=== PATIENT | female | born 1955 | race Caucasian/White ===

== ENCOUNTER 2018-09-15 00:44 | Inpatient (IN) | payer MEDICARE, MEDICAID ==
--- NOTE | 2018-09-15 01:16 | ED Physician Chart ---
ED Chief Complaint/HPI - Patient Information Date Seen:: 09/15/18 Time Seen:: 01:11 Chief Complaint:: suicidal History of Present Illness:: 63 yr old female with agitationn suicidal here for geropsych evaluation Allergies:: Allergies Allergy/AdvReac Type Severity Reaction Status Date / Time Penicillins Allergy Verified 09/15/18 01:04 ED Past Medical History - Past Medical History Psychiatricy History: Depression, Schizophrenia, Bipolar ED Physical Exam - Physical Examination General/Constitutional: Awake, Well-developed, well-nourished, Alert, No distress, GCS 15, Non-toxic appearing, Ambulatory Head: Atraumatic Eyes: Lids, conjuctiva normal, PERRL, EOMI Skin: Nl inspection, No rash, No skin lesions, No ecchymosis, Well hydrated, No lymphadenopathy ENMT: External ears, nose nl, Nasal exam nl, Lips, teeth, gums nl Neck: Nontender, Full ROM w/o pain, No JVD, No nuchal rigidity, No bruit, No mass, No stridor Respiratory: Nl effort/Exclusion, Clear to Auscultation, No Wheeze/Rhonchi/Rales Cardio Vascular: RRR, No murmur, gallop, rubs, NL S1 S2 GI: No tenderness/rebounding/guarding, No organomegaly, No hernia, Normal BS's, Nondistended, No mass/bruits, No McBurney tenderness : No CVA tenderness Extremities: No tenderness or effusion, Full ROM, normal strength in all extremities, No edema, Normal digits & nails Neuro/Psych: Alert/oriented, DTR's symmetric, Normal sensory exam, Normal motor strength, Judgement/insight normal, Mood normal, Normal gait, No focal deficits Misc: Normal back, No paraspinal tenderness ED Assessment - Assessment General Assessment: psychosis depression suicidal ED Septic Shock - . Is Septic Shock (SBP<90, OR Lactate>4 mmol\L) present?: No - <6hrs of presentation: Vital Signs: dmcopd htnn ED Reassessment (Disposition) - Reassessment Reassessment:: copd htn depression - Diagnosis Diagnosis:: same - Aftercare/Follow up Instructions Aftercare/Follow-Up Instructions:: Counseled pt regarding lab results/diagnosis & need follow up Medication Prescribed:: multiple see lnurses notes - Patient Disposition Discharge/Transfer:: Home Condition at Disposition:: Stable
[2018-09-15 02:02] LABS: % EOSINOPHILS 0.9 % (0.0-5.0); % LYMPHOCYTES 22.1 % (20.0-50.0); % MONOCYTES 6.2 % (2.0-10.0); % NEUTROPHILS 70.8 % (40.0-80.0); EOSINOPHILE ABSOLUTE 0.1 Th/cmm (0.1-0.4); HEMATOCRIT 47.7 % (41.0-60); HEMOGLOBIN 15.6 gm/dL (12-16); LYMPHOCYTE ABSOLUTE 2.7 Th/cmm (1.5-3.0); MEAN CELL VOLUME 82.2 fl (81-100); MEAN CORPUSCULAR HEMOGLOBIN 26.9 pg (27.0-31.0); MEAN CORPUSCULAR HGB CONC 32.7 pg (28.0-36.0); MONOCYTE ABSOLUTE 0.8 Th/cmm (0.3-1.0); NEUTROPHILE ABSOLUTE 8.5 Th/cmm (1.8-8.0); PLATELET COUNT 274 Th/cmm (150-400); RED CELL DISTRIBUTION WIDTH 17.2 % (11.5-20.0); WHITE BLOOD COUNT 12.1 Th/cmm (4.8-10.8)
[2018-09-15 02:11] LABS: ANION GAP 13.4 (7.0-16.0); BUN - UREA NITROGEN 24 mg/dL (7-25); CARBON DIOXIDE 35.5 mEq/L (21.0-31.0); CHLORIDE 88 mEq/L (98-107); CREATININE - SERUM 0.6 mg/dL (0.6-1.2); GFR AFRICAN-AMERICAN > 60.0 ml/min (>90); GFR NON AFRICAN-AMERICAN > 60.0 ml/min; GLUCOSE 124 mg/dL (70-105); SODIUM SERUM 134 mEq/L (136-145)
[2018-09-15 02:18] LABS: POTASSIUM SERUM 2.9 mEq/L (3.5-5.1)
[2018-09-15] MEDS ORDERED: Potassium Chloride 20 mEq ER Tab PO ONE (02:42)
[2018-09-15] MEDS: Potassium Chloride 20 mEq ER Tab PO ONE ×2 (02:47→03:03)
[2018-09-15 03:48] VITALS: BP 102/88
[2018-09-15] MEDS ORDERED: INSULIN HUMAN REGULAR 100 UNITS/ML UNIT SUBQ SCH (07:30)
[2018-09-15] MEDS ORDERED: GLUCAGON HCl 1 MG KIT IM PRN (07:39)
[2018-09-15] MEDS ORDERED: Dextrose 50% 50 mL Abboject IVP PRN (07:39)
--- NOTE | 2018-09-15 08:02 | History & Physical ---
ADMIT DATE: 09/15/2018 DATE OF SERVICE: 09/15/2018 CHIEF COMPLAINT: Agitation and suicidal ideation. HISTORY OF PRESENT ILLNESS: This is a 63-year-old female, who was admitted from a longterm facility and was transferred to [facility] due to increase in agitation and verbalization of suicidal thoughts. From the Emergency Room, the patient was medically cleared and hence was transferred to psychiatric unit. REVIEW OF SYSTEMS: GENERAL: This is a 63-year-old female. No fever. No weakness. HEAD: No headache, no dizziness. EYES: No eye pain or blurring vision. NECK: No neck pain or nuchal rigidity. CHEST: No chest pain, no palpitation. PULMONARY: No coughing, no shortness of breath. GASTROINTESTINAL: No abdominal pain, no constipation, no diarrhea. MUSCULOSKELETAL: No joint pain. No muscle pain. SOCIAL HISTORY: The patient lives in a longterm facility prior to hospitalization. PSYCHIATRIC HISTORY: Includes depression. PAST MEDICAL HISTORY: Includes hypertension, congestive heart failure, diabetes, osteoarthritis, hyperlipidemia. FAMILY HISTORY: Unremarkable. PAST SURGICAL HISTORY: Unremarkable. PHYSICAL EXAMINATION: VITAL SIGNS: Temperature 98.2, heart rate of 82, blood pressure 104/57, respirations 20, and 99% on room air. GENERAL: This is a 63-year-old female who appears as stated in no acute distress. HEENT: Head is atraumatic and normocephalic. EYES: Bilateral conjunctivae are clear. Bilateral pupils are equally round and reactive. NECK: Supple. No JVD. CARDIOVASCULAR: S1 and S2, without murmur. PULMONARY: Clear to auscultation. GASTROINTESTINAL: Soft and nontender without guarding. Positive bowel sounds. MUSCULOSKELETAL: No clubbing. No cyanosis noted. ASSESSMENT: 1. Depression. 2. Suicidal ideation. 3. Rule out bipolar disorder. 4. Osteoarthritis. 5. Hypertension. 6. Congestive heart failure. 7. Diabetes. 8. Gastroesophageal reflux disease. 9. Hyperlipidemia. 10. Osteoarthritis. PLAN: We will admit the patient to Psychiatric Unit. We will follow up with a psychiatrist to monitor the patient's condition and behavior. We will do medication reconciliation accordingly. Treatment plans were discussed with the patient's nurse. Treatment plans were discussed with Dr. Paul. JOB# [id number]
[2018-09-15] MEDS: Pantoprazole 40 mg EC Tab PO SCH (08:23)
[2018-09-15] MEDS: Lactobacillus Rhamnosus GG 15 Billion CFU CAP.SPRINK PO SCH (08:23)
[2018-09-15] MEDS ORDERED: BULGARICUS PO SCH (09:00)
[2018-09-15] MEDS ORDERED: HYDROCHLOROTHIAZIDE 50 MG PO SCH (09:00)
[2018-09-15] MEDS ORDERED: ACIDOPHILUS PO SCH (09:00)
--- NOTE | 2018-09-15 09:41 | Diagnostic Imaging Report ---
Portable chest x-ray HISTORY: Shortness of breath The heart appears enlarged. Accentuation of the interstitial lung markings. No acute focal pulmonary processes are seen. IMPRESSION: 1. Cardiomegaly 2. No definite acute focal pulmonary processes
[2018-09-15] MEDS: INSULIN LISPRO SLIDING SCALE 100 UNITS/ML UNIT SUBQ SCH ×3 (12:00→21:12)
[2018-09-15 13:01] LABS: CHOLESTEROL 160 mg/dL (<200); HDL -HIGH DENSITY LIPOPROTEIN 36 mg/dL (23-92); TRIGLYCERIDES 281 mg/dL (<150)
--- NOTE | 2018-09-15 19:36 | Psychiatric Evaluation ---
DATE OF SERVICE: 09/15/2018 DATE OF ADMISSION: 09/15/2018 AGE: 63 SEX: Female. PHYSICIAN: Dr. Gomez, Dr. Reddy. CHIEF COMPLAINT: Agitation and confusion. HISTORY OF PRESENT ILLNESS: The patient is a 63-year-old female who was transferred from [facility] because of increased confusion and also the patient has been depressed and verbalizing thoughts of suicide and wants to kill herself. The patient has been depressed and has been anxious in the [facility]. She also has been having difficulty following directions. Also, has been withdrawn. PAST PSYCHIATRIC HISTORY: The patient has history of depression. PAST MEDICAL HISTORY: The patient has no major medical problems. SOCIAL HISTORY: The patient lives in [facility]. No known alcohol or street drug use. ALLERGIES: No known allergies. MENTAL STATUS EXAMINATION: The patient appears her stated age. Anxious. Sad affect. Agitated. Labile affect. Mood not depressed, nor elated. The patient is confused, but denies any homicidal or suicidal ideations. The patient is alert and oriented to time, place, person, and situation. Intact immediate and recent memory and intact remote memory. Poor insight and poor judgment. She seems to be of low average intelligence based on her verbal ability. ASSESSMENT AND PRIMARY DIAGNOSIS: Bipolar disorder, mixed episode, severe, with psychotic features. TREATMENT PLAN: Continue to monitor her behavior and her condition closely. We will start individual as well as milieu psychotherapy. Also, work on behavioral agitation and adjusting psychotropic medications. ESTIMATED LENGTH OF STAY: 7-10 days. THE PATIENT'S STRENGTHS AND WEAKNESSES: The patient's general fund of knowledge is fair. Weaknesses: Her ineffective coping and poor impulse control. CURRENT MEDICATIONS: Paxil 20 mg every day. AFTER-DISCHARGE PLANS: The patient will return to the [facility] with plans for followup there. The patient also is a candidate for a day program. CRITERIA FOR DISCHARGE: The patient will not be aggressive and stabilize on psychotropic medications and establish outpatient treatment plans. [facility]# [id number]
[2018-09-16] MEDS: INSULIN LISPRO SLIDING SCALE 100 UNITS/ML UNIT SUBQ SCH ×4 (06:33→21:41)
[2018-09-16] MEDS: Pantoprazole 40 mg EC Tab PO SCH (09:00)
[2018-09-16] MEDS: Lactobacillus Rhamnosus GG 15 Billion CFU CAP.SPRINK PO SCH (09:00)
[2018-09-16 09:05] LABS: A1C 6.6 % (4.8-5.6)
--- NOTE | 2018-09-16 17:05 | Internal Medicine Prog Note ---
Internal Medicine Subjective - Subjective Patient is:: awake, non-interactive Patient Complaints of:: other (none) Internal Medicine Objective - Results Result Diagrams: 09/15/18 01:45 09/15/18 01:45 Recent Labs: Laboratory Last Values WBC 12.1 Th/cmm (4.8-10.8) H 09/15/18 01:45 RBC 5.80 Mil/cmm (3.80-5.20) H 09/15/18 01:45 Hgb 15.6 gm/dL (12-16) 09/15/18 01:45 Hct 47.7 % (41.0-60) 09/15/18 01:45 MCV 82.2 fl (81-100) 09/15/18 01:45 MCH 26.9 pg (27.0-31.0) L 09/15/18 01:45 MCHC Differential 32.7 pg (28.0-36.0) 09/15/18 01:45 RDW 17.2 % (11.5-20.0) 09/15/18 01:45 Plt Count 274 Th/cmm (150-400) 09/15/18 01:45 MPV 9.3 fl 09/15/18 01:45 Neutrophils % 70.8 % (40.0-80.0) 09/15/18 01:45 Lymphocytes % 22.1 % (20.0-50.0) 09/15/18 01:45 Monocytes % 6.2 % (2.0-10.0) 09/15/18 01:45 Eosinophils % 0.9 % (0.0-5.0) 09/15/18 01:45 Basophils % 0.0 % (0.0-2.0) 09/15/18 01:45 Sodium 134 mEq/L (136-145) L 09/15/18 01:45 Potassium 2.9 mEq/L (3.5-5.1) L* 09/15/18 01:45 Chloride 88 mEq/L (98-107) L 09/15/18 01:45 Carbon Dioxide 35.5 mEq/L (21.0-31.0) H 09/15/18 01:45 Anion Gap 13.4 (7.0-16.0) 09/15/18 01:45 BUN 24 mg/dL (7-25) 09/15/18 01:45 Creatinine 0.6 mg/dL (0.6-1.2) 09/15/18 01:45 Est GFR ( Amer) > 60.0 ml/min (>90) 09/15/18 01:45 Est GFR (Non-Af Amer) > 60.0 ml/min 09/15/18 01:45 BUN/Creatinine Ratio 40.0 09/15/18 01:45 Glucose 124 mg/dL (70-105) H 09/15/18 01:45 POC Glucose 125 MG/DL (70 - 105) H 09/16/18 06:04 Calcium 10.0 mg/dL (8.6-10.3) 09/15/18 01:45 Triglycerides 281 mg/dL (<150) H 09/15/18 00:00 Cholesterol 160 mg/dL (<200) 09/15/18 00:00 LDL Cholesterol Direct 84 mg/dL (75-193) 09/15/18 00:00 HDL Cholesterol 36 mg/dL (23-92) 09/15/18 00:00 - Physical Exam Vitals and I&O: Vital Signs Temp 98.2 F 09/16/18 14:00 Pulse 88 09/16/18 14:00 Resp 20 09/16/18 14:00 BP 105/69 09/16/18 14:00 Pulse Ox 95 09/16/18 14:00 Intake & Output 09/15/18 09/16/18 09/16/18 18:59 06:59 18:59 Intake Total 500 240 Balance 500 240 Intake: Oral 500 240 Other: # Voids 2 2 # Bowel Movements 0 Active Medications: Current Medications Acetaminophen (Tylenol) 650 mg PO Q4HR PRN PRN Reason: Pain or Fever >101 Stop: 11/14/18 03:55 Amlodipine Besylate (Norvasc) 5 mg PO DAILY [facility] Stop: 11/14/18 08:59 Last Admin: 09/16/18 09:00 Dose: 5 mg Dextrose (D50w) 50 ml IVP PRN PRN PRN Reason: Blood Glucose less than 70 Stop: 11/14/18 07:38 Dextrose (Glutose 40%) 18.75 gm PO PRN PRN PRN Reason: Blood Glucose less than 70 Stop: 11/14/18 07:38 Furosemide (Lasix) 20 mg PO DAILY [facility] Stop: 11/14/18 08:59 Last Admin: 09/16/18 09:00 Dose: 20 mg Glucagon (Glucagen) 1 mg IM PRN PRN PRN Reason: Blood Glucose less than 70 Stop: 11/14/18 07:38 Hydrochlorothiazide (Hctz) 50 mg PO BID [facility] Stop: 11/14/18 08:59 Last Admin: 09/16/18 09:00 Dose: 50 mg Hydroxyzine HCl (Atarax) 25 mg PO BID [facility]; Protocol Stop: 11/14/18 08:59 Last Admin: 09/16/18 09:00 Dose: 25 mg Insulin Human Lispro (Humalog Insulin Sliding Scale) 0 units SUBQ ACHS [facility]; Protocol Stop: 11/14/18 11:29 Last Admin: 09/16/18 16:41 Dose: Not Given Lactobacillus Rhamnosus (Culturelle 15b) 1 each PO DAILY [facility] Stop: 11/14/18 08:59 Last Admin: 09/16/18 09:00 Dose: 1 each Lorazepam (Ativan) 0.5 mg PO Q4HR PRN; Protocol PRN Reason: Anxiety Stop: 10/15/18 03:47 Pantoprazole Sodium (Protonix) 40 mg PO DAILY [facility] Stop: 11/14/18 08:59 Last Admin: 09/16/18 09:00 Dose: 40 mg Paroxetine HCl (Paxil) 20 mg PO DAILY [facility]; Protocol Stop: 11/14/18 08:59 Last Admin: 09/16/18 09:00 Dose: 20 mg Senna (Senna) 8.6 mg PO BID [facility] Stop: 11/14/18 08:59 Last Admin: 09/16/18 09:00 Dose: 8.6 mg Simvastatin (Zocor) 20 mg PO HS [facility]; Protocol Stop: 11/14/18 20:59 Last Admin: 09/15/18 21:11 Dose: Not Given Tramadol HCl (Ultram) 50 mg PO BID PRN PRN Reason: Pain (Moderate) Stop: 11/14/18 03:55 Zolpidem Tartrate (Ambien) 5 mg PO HS PRN PRN Reason: Insomnia Stop: 11/14/18 03:47 General: alert, demented, NAD HEENT: NC/AT Neck: Supple, No JVD Lungs: other (no acute respiratory distress) Cardiovascular: Normal S1, Normal S2 Abdomen: soft Internal Medicine Assmt/Plan - Assessment Assessment: #Depression #Suidical Ideations #r/o Bipolar disorder #OA #HTN #CHF #DM #GERD #Hyperlipidemia - Plan Plan: Continue to keep Inpt Psych unit Monitor IOs Monitor VS Monitor patient's condition and behavior F/u Psych recs Continue current treatment.
[2018-09-17] MEDS: INSULIN LISPRO SLIDING SCALE 100 UNITS/ML UNIT SUBQ SCH ×4 (06:32→21:07)
[2018-09-17] MEDS: Pantoprazole 40 mg EC Tab PO SCH (09:01)
[2018-09-17] MEDS: Lactobacillus Rhamnosus GG 15 Billion CFU CAP.SPRINK PO SCH (09:03)
--- NOTE | 2018-09-17 10:00 | Progress Notes ---
DATE: SUBJECTIVE: Chart reviewed and the patient interviewed. Also discussed the patient's condition with the staff and reviewed records and labs. The patient remains in a depressed mood and she is still withdrawn. The patient also still has periods of agitation and irritability and also had episodes of anger and difficulty following directions. The patient also although depressed, she refused to take Paxil and uncooperative with her treatment plans. She also still needs lots of redirections because of agitation and confusion and depression. ASSESSMENT: The patient is still depressed. TREATMENT PLAN: Continue monitoring her behavior and condition closely. Also, continue adjusting to work on her compliance with medications and continue to follow up. [facility]# [id number]
--- NOTE | 2018-09-17 10:21 | Internal Medicine Prog Note ---
Internal Medicine Subjective - Subjective Service Date: 09/17/18 Patient seen and examined:: with staff Patient is:: awake, non-interactive Patient Complaints of:: other (Patient is Agitated.) Per staff patient has:: no adverse event, no episodes of fall Internal Medicine Objective - Results Result Diagrams: 09/15/18 01:45 09/15/18 01:45 Recent Labs: Laboratory Last Values WBC 12.1 Th/cmm (4.8-10.8) H 09/15/18 01:45 RBC 5.80 Mil/cmm (3.80-5.20) H 09/15/18 01:45 Hgb 15.6 gm/dL (12-16) 09/15/18 01:45 Hct 47.7 % (41.0-60) 09/15/18 01:45 MCV 82.2 fl (81-100) 09/15/18 01:45 MCH 26.9 pg (27.0-31.0) L 09/15/18 01:45 MCHC Differential 32.7 pg (28.0-36.0) 09/15/18 01:45 RDW 17.2 % (11.5-20.0) 09/15/18 01:45 Plt Count 274 Th/cmm (150-400) 09/15/18 01:45 MPV 9.3 fl 09/15/18 01:45 Neutrophils % 70.8 % (40.0-80.0) 09/15/18 01:45 Lymphocytes % 22.1 % (20.0-50.0) 09/15/18 01:45 Monocytes % 6.2 % (2.0-10.0) 09/15/18 01:45 Eosinophils % 0.9 % (0.0-5.0) 09/15/18 01:45 Basophils % 0.0 % (0.0-2.0) 09/15/18 01:45 Sodium 134 mEq/L (136-145) L 09/15/18 01:45 Potassium 2.9 mEq/L (3.5-5.1) L* 09/15/18 01:45 Chloride 88 mEq/L (98-107) L 09/15/18 01:45 Carbon Dioxide 35.5 mEq/L (21.0-31.0) H 09/15/18 01:45 Anion Gap 13.4 (7.0-16.0) 09/15/18 01:45 BUN 24 mg/dL (7-25) 09/15/18 01:45 Creatinine 0.6 mg/dL (0.6-1.2) 09/15/18 01:45 Est GFR ( Amer) > 60.0 ml/min (>90) 09/15/18 01:45 Est GFR (Non-Af Amer) > 60.0 ml/min 09/15/18 01:45 BUN/Creatinine Ratio 40.0 09/15/18 01:45 Glucose 124 mg/dL (70-105) H 09/15/18 01:45 POC Glucose 99 MG/DL (70 - 105) 09/17/18 06:20 Calcium 10.0 mg/dL (8.6-10.3) 09/15/18 01:45 Triglycerides 281 mg/dL (<150) H 09/15/18 00:00 Cholesterol 160 mg/dL (<200) 09/15/18 00:00 LDL Cholesterol Direct 84 mg/dL (75-193) 09/15/18 00:00 HDL Cholesterol 36 mg/dL (23-92) 09/15/18 00:00 - Physical Exam Vitals and I&O: Vital Signs Temp 98.5 F 09/17/18 06:18 Pulse 70 09/17/18 09:02 Resp 18 09/17/18 08:17 BP 110/56 09/17/18 09:02 Pulse Ox 83 09/17/18 08:17 Intake & Output 09/16/18 09/17/18 09/17/18 18:59 06:59 18:59 Intake Total 120 Balance 120 Intake: Oral 120 Other: # Voids 3 # Bowel Movements 0 Active Medications: Current Medications Acetaminophen (Tylenol) 650 mg PO Q4HR PRN PRN Reason: Pain or Fever >101 Stop: 11/14/18 03:55 Amlodipine Besylate (Norvasc) 5 mg PO DAILY [facility] Stop: 11/14/18 08:59 Last Admin: 09/17/18 09:02 Dose: 5 mg Dextrose (D50w) 50 ml IVP PRN PRN PRN Reason: Blood Glucose less than 70 Stop: 11/14/18 07:38 Dextrose (Glutose 40%) 18.75 gm PO PRN PRN PRN Reason: Blood Glucose less than 70 Stop: 11/14/18 07:38 Furosemide (Lasix) 20 mg PO DAILY [facility] Stop: 11/14/18 08:59 Last Admin: 09/17/18 09:02 Dose: 20 mg Glucagon (Glucagen) 1 mg IM PRN PRN PRN Reason: Blood Glucose less than 70 Stop: 11/14/18 07:38 Hydrochlorothiazide (Hctz) 50 mg PO BID [facility] Stop: 11/14/18 08:59 Last Admin: 09/17/18 09:01 Dose: 50 mg Hydroxyzine HCl (Atarax) 25 mg PO BID [facility]; Protocol Stop: 11/14/18 08:59 Last Admin: 09/17/18 09:03 Dose: 25 mg Insulin Human Lispro (Humalog Insulin Sliding Scale) 0 units SUBQ ACHS [facility]; Protocol Stop: 11/14/18 11:29 Last Admin: 09/17/18 06:32 Dose: Not Given Lactobacillus Rhamnosus (Culturelle 15b) 1 each PO DAILY [facility] Stop: 11/14/18 08:59 Last Admin: 09/17/18 09:03 Dose: 1 each Lorazepam (Ativan) 0.5 mg PO Q4HR PRN; Protocol PRN Reason: Anxiety Stop: 10/15/18 03:47 Last Admin: 09/17/18 01:44 Dose: 0.5 mg Pantoprazole Sodium (Protonix) 40 mg PO DAILY [facility] Stop: 11/14/18 08:59 Last Admin: 09/17/18 09:01 Dose: 40 mg Paroxetine HCl (Paxil) 20 mg PO DAILY [facility]; Protocol Stop: 11/14/18 08:59 Last Admin: 09/17/18 09:03 Dose: 20 mg Senna (Senna) 8.6 mg PO BID [facility] Stop: 11/14/18 08:59 Last Admin: 09/17/18 09:03 Dose: 8.6 mg Simvastatin (Zocor) 20 mg PO HS [facility]; Protocol Stop: 11/14/18 20:59 Last Admin: 09/16/18 21:43 Dose: 20 mg Tramadol HCl (Ultram) 50 mg PO BID PRN PRN Reason: Pain (Moderate) Stop: 11/14/18 03:55 Zolpidem Tartrate (Ambien) 5 mg PO HS PRN PRN Reason: Insomnia Stop: 11/14/18 03:47 Last Admin: 09/16/18 21:42 Dose: 5 mg Physical Exam: 63 y/o female patient was admitted due to Agitation, Suicidal ideation and R/o Bipolar disorder. General: alert, demented, NAD HEENT: NC/AT Neck: Supple, No JVD Lungs: other (no acute respiratory distress.) Cardiovascular: Normal S1, Normal S2 Abdomen: soft, non-tender Extremities: clear Neurological: no change Internal Medicine Assmt/Plan - Assessment Assessment: Agitation. Suicidal ideation. R/o Bipolar Disorder. Depression. HTN. CHF. Diabetes. OA. Hyperlipidemia. GERD. - Plan Plan: Continuation of care. Monitor Vitals and Labs. Continue present meds as directed. Pain management. Fall precaution. Psych management per Psych. Continue present care management. Nutritional Asmnt/Malnutr-PDOC - Dietary Evaluation Malnutrition Findings (Please click <Entered> for more info): see orders.
--- NOTE | 2018-09-17 23:04 | Progress Notes ---
DATE: SUBJECTIVE: Chart reviewed and the patient interviewed. Also discussed the patient's condition with the staff and reviewed records and labs. The patient is still withdrawn and stayed in a depressed mood. The patient also is still feeling hopeless and helpless and does not want to be bothered and is interacting minimally with others. The patient also is still noncompliant with medications for no reason. She also is still feeling hopeless. Otherwise, the patient continued to comply with taking her medications with no side effects of medications. ASSESSMENT: The patient is still depressed and need close monitoring and working on her ineffective coping. TREATMENT PLAN: Continue working on her compliance with medications that had been ineffective coping. Also, continue adjusting medications and working on her compliance. [facility]# [id number]
[2018-09-18] MEDS: INSULIN LISPRO SLIDING SCALE 100 UNITS/ML UNIT SUBQ SCH ×4 (06:41→20:40)
[2018-09-18] MEDS: Lactobacillus Rhamnosus GG 15 Billion CFU CAP.SPRINK PO SCH (08:44)
[2018-09-18] MEDS: Pantoprazole 40 mg EC Tab PO SCH (08:44)
--- NOTE | 2018-09-18 19:26 | Internal Medicine Prog Note ---
Internal Medicine Subjective - Subjective Service Date: 09/18/18 Patient is:: awake, non-interactive Patient Complaints of:: other (Patient is Agitated.) Per staff patient has:: no adverse event, no episodes of fall Internal Medicine Objective - Results Result Diagrams: 09/15/18 01:45 09/15/18 01:45 Recent Labs: Laboratory Last Values WBC 12.1 Th/cmm (4.8-10.8) H 09/15/18 01:45 RBC 5.80 Mil/cmm (3.80-5.20) H 09/15/18 01:45 Hgb 15.6 gm/dL (12-16) 09/15/18 01:45 Hct 47.7 % (41.0-60) 09/15/18 01:45 MCV 82.2 fl (81-100) 09/15/18 01:45 MCH 26.9 pg (27.0-31.0) L 09/15/18 01:45 MCHC Differential 32.7 pg (28.0-36.0) 09/15/18 01:45 RDW 17.2 % (11.5-20.0) 09/15/18 01:45 Plt Count 274 Th/cmm (150-400) 09/15/18 01:45 MPV 9.3 fl 09/15/18 01:45 Neutrophils % 70.8 % (40.0-80.0) 09/15/18 01:45 Lymphocytes % 22.1 % (20.0-50.0) 09/15/18 01:45 Monocytes % 6.2 % (2.0-10.0) 09/15/18 01:45 Eosinophils % 0.9 % (0.0-5.0) 09/15/18 01:45 Basophils % 0.0 % (0.0-2.0) 09/15/18 01:45 Sodium 134 mEq/L (136-145) L 09/15/18 01:45 Potassium 2.9 mEq/L (3.5-5.1) L* 09/15/18 01:45 Chloride 88 mEq/L (98-107) L 09/15/18 01:45 Carbon Dioxide 35.5 mEq/L (21.0-31.0) H 09/15/18 01:45 Anion Gap 13.4 (7.0-16.0) 09/15/18 01:45 BUN 24 mg/dL (7-25) 09/15/18 01:45 Creatinine 0.6 mg/dL (0.6-1.2) 09/15/18 01:45 Est GFR ( Amer) > 60.0 ml/min (>90) 09/15/18 01:45 Est GFR (Non-Af Amer) > 60.0 ml/min 09/15/18 01:45 BUN/Creatinine Ratio 40.0 09/15/18 01:45 Glucose 124 mg/dL (70-105) H 09/15/18 01:45 POC Glucose 89 MG/DL (70 - 105) 09/18/18 16:42 Calcium 10.0 mg/dL (8.6-10.3) 09/15/18 01:45 Triglycerides 281 mg/dL (<150) H 09/15/18 00:00 Cholesterol 160 mg/dL (<200) 09/15/18 00:00 LDL Cholesterol Direct 84 mg/dL (75-193) 09/15/18 00:00 HDL Cholesterol 36 mg/dL (23-92) 09/15/18 00:00 - Physical Exam Vitals and I&O: Vital Signs Temp 98.6 F 09/18/18 14:17 Pulse 92 09/18/18 19:24 Resp 20 09/18/18 19:24 BP 127/54 09/18/18 16:54 Pulse Ox 95 09/18/18 19:24 Intake & Output 09/18/18 09/18/18 09/19/18 06:59 18:59 06:59 Intake Total 240 500 Balance 240 500 Intake: Oral 240 500 Other: # Voids 3 4 # Bowel Movements 0 0 Active Medications: Current Medications Acetaminophen (Tylenol) 650 mg PO Q4HR PRN PRN Reason: Pain or Fever >101 Stop: 11/14/18 03:55 Amlodipine Besylate (Norvasc) 5 mg PO DAILY [facility] Stop: 11/14/18 08:59 Last Admin: 09/18/18 08:24 Dose: Not Given Dextrose (D50w) 50 ml IVP PRN PRN PRN Reason: Blood Glucose less than 70 Stop: 11/14/18 07:38 Dextrose (Glutose 40%) 18.75 gm PO PRN PRN PRN Reason: Blood Glucose less than 70 Stop: 11/14/18 07:38 Furosemide (Lasix) 20 mg PO DAILY [facility] Stop: 11/14/18 08:59 Last Admin: 09/18/18 08:45 Dose: Not Given Glucagon (Glucagen) 1 mg IM PRN PRN PRN Reason: Blood Glucose less than 70 Stop: 11/14/18 07:38 Hydrochlorothiazide (Hctz) 50 mg PO BID [facility] Stop: 11/14/18 08:59 Last Admin: 09/18/18 16:54 Dose: 50 mg Hydroxyzine HCl (Atarax) 25 mg PO BID [facility]; Protocol Stop: 11/14/18 08:59 Last Admin: 09/18/18 16:55 Dose: 25 mg Insulin Human Lispro (Humalog Insulin Sliding Scale) 0 units SUBQ ACHS [facility]; Protocol Stop: 11/14/18 11:29 Last Admin: 09/18/18 16:48 Dose: Not Given Lactobacillus Rhamnosus (Culturelle 15b) 1 each PO DAILY [facility] Stop: 11/14/18 08:59 Last Admin: 09/18/18 08:44 Dose: 1 each Lorazepam (Ativan) 0.5 mg PO Q4HR PRN; Protocol PRN Reason: Anxiety Stop: 10/15/18 03:47 Last Admin: 09/17/18 01:44 Dose: 0.5 mg Pantoprazole Sodium (Protonix) 40 mg PO DAILY [facility] Stop: 11/14/18 08:59 Last Admin: 09/18/18 08:44 Dose: 40 mg Paroxetine HCl (Paxil) 20 mg PO DAILY [facility]; Protocol Stop: 11/14/18 08:59 Last Admin: 09/18/18 08:46 Dose: 20 mg Senna (Senna) 8.6 mg PO BID [facility] Stop: 11/14/18 08:59 Last Admin: 09/18/18 16:53 Dose: 8.6 mg Simvastatin (Zocor) 20 mg PO HS [facility]; Protocol Stop: 11/14/18 20:59 Last Admin: 09/17/18 21:08 Dose: 20 mg Tramadol HCl (Ultram) 50 mg PO BID PRN PRN Reason: Pain (Moderate) Stop: 11/14/18 03:55 Zolpidem Tartrate (Ambien) 5 mg PO HS PRN PRN Reason: Insomnia Stop: 11/14/18 03:47 Last Admin: 09/17/18 21:08 Dose: 5 mg General: alert, demented, NAD HEENT: NC/AT Neck: Supple, No JVD Lungs: other (no acute respiratory distress.) Cardiovascular: Normal S1, Normal S2 Abdomen: soft, non-tender Extremities: clear Neurological: no change Internal Medicine Assmt/Plan - Assessment Assessment: #Psychosis #Dementia #HTN #OA #Iron deficiency Anemia - Plan Plan: CPM Nutritional Asmnt/Malnutr-PDOC - Dietary Evaluation Malnutrition Findings (Please click <Entered> for more info): Nutritional Asmnt/Malnutrition Start: 09/17/18 11: 12 Text: Status: Complete Freq: Protocol: Document 09/17/18 11:12 MMULMYRANDA (Rec: 09/17/18 11:29 MMULMYRANDA CULVER- FNS1) Nutritional Asmnt/Malnutrition Patient General Information Nutritional Screening High Risk Consult Diagnosis Psychosis NOS Pertinent Medical Hx/Surgical Hx HTN, Congestive heart failure, diabetes, osteoarthritis, hyperlipidemia Subjective Information Patient was admitted from SNF. Consult recieved for "food texture". Patient was given KCL 40 meq, but K was not rechecked. In bed at time of visit. Current Diet Order/ Nutrition Support 60 gm CCHO, 2gm Sodium, no concentrated sweets, chopped Patient / S.O Not Indicated Pertinent Medications D50W, lasix, glucagon, humalog , culturelle, protonix, senna Pertinent Labs (09/15) Na 134, K 2.9, TAG 281, glucose ranging 99-172 Nutritional Hx/Data Height 5 ft Height (Calculated Centimeters) 152.4 Current Weight (lbs) 150 lb Weight (Calculated Kilograms) 68.0 Weight (Calculated Grams) 61708.9 [place] Body Weight 100 % [place] Body Weight 150 Body Mass Index (BMI) 29.2 Recent Weight Change No Weight Status Overweight GI Symptoms GI Symptoms None Last BM none noted since admission Difficult in: None Food Allergies No Cultural/Ethnic/Episcopal Belief none noted Usual diet at home unknown Skin Integrity/Comment: Vlad 20, 2+ pitting edema Current %PO Fair (50-74%) Estimated Nutritional Goals BEE in Kcals: Using Current wt Calories/Kcals/Kg 68.1kg CBW Kcals Calculated ~7621-4543 kcal/day (22-25 kcal/kg) Protein: Using Current wt Protein g/k.8-1 gm/kg Protein Calculated ~55-65 gm/day Fluid: ml ~1716-7073 ml/day (1 ml/kcal) Nutritional Problem 1. Problem Problem Altered nutrition related lab values related to Etiology electrolyte imbalance aeb Signs/Symptoms: Na 134, K 2.9 Intervention/Recommendation Comments 1. Continue 60 gm CCHO, 2gm Sodium, Chopped diet as tolerated by patient. 2. Consider rechecking K and Na level. If remains hyponatremic, consider fluid restriction. Expected Outcomes/Goals Expected Outcomes/Goals PO intake to meet >75% of nutritional needs, weight stability or trend toward ideal body weight, skin intact , nutrition related labs to approach WNL. F/U MR 09/20-09/22
--- NOTE | 2018-09-19 02:37 | Progress Notes ---
DATE: 09/18/2018 FOLLOWUP PROGRESS NOTE COVERING FOR: Jeremiah Gomez M.D. PROGRESS ON THE UNIT: Case discussed with staff of the patient, reviewed records. This is a 63-year-old female who is admitted on 09/15/2018, transferred from [facility] because of increasing confusion, has been depressed, verbalized thoughts of suicide, wants to kill herself, has been depressed and anxious at the nursing facility, difficulty following staff's redirection. When I tried to talk to her, she is a poor historian, unable to engage. Continues to be depressed looking. Minimal interaction with staff and others. Apparently has been noncompliant with the medications. Feeling hopeless and helpless. We will continue to work with the patient in group therapy and milieu therapy, adjust the medication as needed. JOB# [id number]
[2018-09-19] MEDS: INSULIN LISPRO SLIDING SCALE 100 UNITS/ML UNIT SUBQ SCH ×4 (06:36→20:44)
[2018-09-19] MEDS: Lactobacillus Rhamnosus GG 15 Billion CFU CAP.SPRINK PO SCH (09:17)
[2018-09-19] MEDS: Pantoprazole 40 mg EC Tab PO SCH (09:17)
--- NOTE | 2018-09-19 13:02 | Internal Medicine Prog Note ---
Internal Medicine Subjective - Subjective Service Date: 09/19/18 Patient seen and examined:: with staff Patient is:: awake, non-interactive, agitated Patient Complaints of:: other (Patient is Agitated.) Per staff patient has:: no adverse event, no episodes of fall Internal Medicine Objective - Results Result Diagrams: 09/15/18 01:45 09/15/18 01:45 Recent Labs: Laboratory Last Values WBC 12.1 Th/cmm (4.8-10.8) H 09/15/18 01:45 RBC 5.80 Mil/cmm (3.80-5.20) H 09/15/18 01:45 Hgb 15.6 gm/dL (12-16) 09/15/18 01:45 Hct 47.7 % (41.0-60) 09/15/18 01:45 MCV 82.2 fl (81-100) 09/15/18 01:45 MCH 26.9 pg (27.0-31.0) L 09/15/18 01:45 MCHC Differential 32.7 pg (28.0-36.0) 09/15/18 01:45 RDW 17.2 % (11.5-20.0) 09/15/18 01:45 Plt Count 274 Th/cmm (150-400) 09/15/18 01:45 MPV 9.3 fl 09/15/18 01:45 Neutrophils % 70.8 % (40.0-80.0) 09/15/18 01:45 Lymphocytes % 22.1 % (20.0-50.0) 09/15/18 01:45 Monocytes % 6.2 % (2.0-10.0) 09/15/18 01:45 Eosinophils % 0.9 % (0.0-5.0) 09/15/18 01:45 Basophils % 0.0 % (0.0-2.0) 09/15/18 01:45 Sodium 134 mEq/L (136-145) L 09/15/18 01:45 Potassium 2.9 mEq/L (3.5-5.1) L* 09/15/18 01:45 Chloride 88 mEq/L (98-107) L 09/15/18 01:45 Carbon Dioxide 35.5 mEq/L (21.0-31.0) H 09/15/18 01:45 Anion Gap 13.4 (7.0-16.0) 09/15/18 01:45 BUN 24 mg/dL (7-25) 09/15/18 01:45 Creatinine 0.6 mg/dL (0.6-1.2) 09/15/18 01:45 Est GFR ( Amer) > 60.0 ml/min (>90) 09/15/18 01:45 Est GFR (Non-Af Amer) > 60.0 ml/min 09/15/18 01:45 BUN/Creatinine Ratio 40.0 09/15/18 01:45 Glucose 124 mg/dL (70-105) H 09/15/18 01:45 POC Glucose 108 MG/DL (70 - 105) H 09/19/18 11:17 Calcium 10.0 mg/dL (8.6-10.3) 09/15/18 01:45 Triglycerides 281 mg/dL (<150) H 09/15/18 00:00 Cholesterol 160 mg/dL (<200) 09/15/18 00:00 LDL Cholesterol Direct 84 mg/dL (75-193) 09/15/18 00:00 HDL Cholesterol 36 mg/dL (23-92) 09/15/18 00:00 - Physical Exam Vitals and I&O: Vital Signs Temp 98.4 F 09/19/18 05:56 Pulse 88 09/19/18 09:14 Resp 20 09/19/18 07:20 BP 118/71 09/19/18 09:18 Pulse Ox 94 09/19/18 07:20 Intake & Output 09/18/18 09/19/18 09/19/18 18:59 06:59 18:59 Intake Total 500 240 Balance 500 240 Intake: Oral 500 240 Other: # Voids 4 1 # Bowel Movements 0 0 Active Medications: Current Medications Acetaminophen (Tylenol) 650 mg PO Q4HR PRN PRN Reason: Pain or Fever >101 Stop: 11/14/18 03:55 Amlodipine Besylate (Norvasc) 5 mg PO DAILY [facility] Stop: 11/14/18 08:59 Last Admin: 09/19/18 09:14 Dose: 5 mg Dextrose (D50w) 50 ml IVP PRN PRN PRN Reason: Blood Glucose less than 70 Stop: 11/14/18 07:38 Dextrose (Glutose 40%) 18.75 gm PO PRN PRN PRN Reason: Blood Glucose less than 70 Stop: 11/14/18 07:38 Furosemide (Lasix) 20 mg PO DAILY [facility] Stop: 11/14/18 08:59 Last Admin: 09/19/18 09:17 Dose: 20 mg Glucagon (Glucagen) 1 mg IM PRN PRN PRN Reason: Blood Glucose less than 70 Stop: 11/14/18 07:38 Hydrochlorothiazide (Hctz) 50 mg PO BID [facility] Stop: 11/14/18 08:59 Last Admin: 09/19/18 09:18 Dose: 50 mg Hydroxyzine HCl (Atarax) 25 mg PO BID [facility]; Protocol Stop: 11/14/18 08:59 Last Admin: 09/19/18 09:17 Dose: 25 mg Insulin Human Lispro (Humalog Insulin Sliding Scale) 0 units SUBQ ACHS [facility]; Protocol Stop: 11/14/18 11:29 Last Admin: 09/19/18 11:21 Dose: Not Given Lactobacillus Rhamnosus (Culturelle 15b) 1 each PO DAILY [facility] Stop: 11/14/18 08:59 Last Admin: 09/19/18 09:17 Dose: 1 each Lorazepam (Ativan) 0.5 mg PO Q4HR PRN; Protocol PRN Reason: Anxiety Stop: 10/15/18 03:47 Last Admin: 09/17/18 01:44 Dose: 0.5 mg Pantoprazole Sodium (Protonix) 40 mg PO DAILY [facility] Stop: 11/14/18 08:59 Last Admin: 09/19/18 09:17 Dose: 40 mg Paroxetine HCl (Paxil) 20 mg PO DAILY [facility]; Protocol Stop: 11/14/18 08:59 Last Admin: 09/19/18 09:17 Dose: 20 mg Senna (Senna) 8.6 mg PO BID [facility] Stop: 11/14/18 08:59 Last Admin: 09/19/18 09:17 Dose: 8.6 mg Simvastatin (Zocor) 20 mg PO HS [facility]; Protocol Stop: 11/14/18 20:59 Last Admin: 09/18/18 20:40 Dose: 20 mg Tramadol HCl (Ultram) 50 mg PO BID PRN PRN Reason: Pain (Moderate) Stop: 11/14/18 03:55 Zolpidem Tartrate (Ambien) 5 mg PO HS PRN PRN Reason: Insomnia Stop: 11/14/18 03:47 Last Admin: 09/18/18 22:31 Dose: 5 mg Physical Exam: 63 y/o female patient was admitted due to Agitation, Suicidal ideation and R/o Bipolar disorder. General: alert, demented, NAD HEENT: NC/AT Neck: Supple, No JVD Lungs: other (no acute respiratory distress.) Cardiovascular: Normal S1, Normal S2 Abdomen: soft, non-tender Extremities: clear Neurological: no change Internal Medicine Assmt/Plan - Assessment Assessment: Agitation. Suicidal ideation. R/o Bipolar Disorder. Depression. HTN. CHF. Diabetes. OA. Hyperlipidemia. GERD. - Plan Plan: Continuation of care. Monitor Vitals and Labs. Continue present meds as directed. Pain management. Fall precaution. Psych management per Psych. Continue present care management. Nutritional Asmnt/Malnutr-PDOC - Dietary Evaluation Malnutrition Findings (Please click <Entered> for more info): Nutritional Asmnt/Malnutrition Start: 09/17/18 11: 12 Text: Status: Complete Freq: Protocol: Document 09/17/18 11:12 MMULMYRANDA (Rec: 09/17/18 11:29 MMULMYRANDA CULVER- FNS1) Nutritional Asmnt/Malnutrition Patient General Information Nutritional Screening High Risk Consult Diagnosis Psychosis NOS Pertinent Medical Hx/Surgical Hx HTN, Congestive heart failure, diabetes, osteoarthritis, hyperlipidemia Subjective Information Patient was admitted from SNF. Consult recieved for "food texture". Patient was given KCL 40 meq, but K was not rechecked. In bed at time of visit. Current Diet Order/ Nutrition Support 60 gm CCHO, 2gm Sodium, no concentrated sweets, chopped Patient / S.O Not Indicated Pertinent Medications D50W, lasix, glucagon, humalog , culturelle, protonix, senna Pertinent Labs (09/15) Na 134, K 2.9, TAG 281, glucose ranging 99-172 Nutritional Hx/Data Height 1.52 m Height (Calculated Centimeters) 152.4 Current Weight (lbs) 68.039 kg Weight (Calculated Kilograms) 68.0 Weight (Calculated Grams) 90358.9 [place] Body Weight 100 % [place] Body Weight 150 Body Mass Index (BMI) 29.2 Recent Weight Change No Weight Status Overweight GI Symptoms GI Symptoms None Last BM none noted since admission Difficult in: None Food Allergies No Cultural/Ethnic/Holiness Belief none noted Usual diet at home unknown Skin Integrity/Comment: Vlad 20, 2+ pitting edema Current %PO Fair (50-74%) Estimated Nutritional Goals BEE in Kcals: Using Current wt Calories/Kcals/Kg 68.1kg CBW Kcals Calculated ~3863-6035 kcal/day (22-25 kcal/kg) Protein: Using Current wt Protein g/k.8-1 gm/kg Protein Calculated ~55-65 gm/day Fluid: ml ~2266-9749 ml/day (1 ml/kcal) Nutritional Problem 1. Problem Problem Altered nutrition related lab values related to Etiology electrolyte imbalance aeb Signs/Symptoms: Na 134, K 2.9 Intervention/Recommendation Comments 1. Continue 60 gm CCHO, 2gm Sodium, Chopped diet as tolerated by patient. 2. Consider rechecking K and Na level. If remains hyponatremic, consider fluid restriction. Expected Outcomes/Goals Expected Outcomes/Goals PO intake to meet >75% of nutritional needs, weight stability or trend toward ideal body weight, skin intact , nutrition related labs to approach WNL. F/U MR 09/20-09/22
--- NOTE | 2018-09-20 00:15 | Progress Notes ---
DATE: 09/19/2018 Case was discussed with staff of the patient, reviewed records. The patient reported that she is taking her medication today. She started taking it. She has no problem taking it. She is sleeping well and eating well. She is on Paxil 20 mg a day with no side effects, no sedation, no nausea and we will continue to work with the patient in group therapy, milieu therapy, and adjust the medication as needed. JOB# [id number]
[2018-09-20] MEDS: INSULIN LISPRO SLIDING SCALE 100 UNITS/ML UNIT SUBQ SCH ×4 (06:35→20:45)
[2018-09-20] MEDS: Pantoprazole 40 mg EC Tab PO SCH (08:35)
[2018-09-20] MEDS: Lactobacillus Rhamnosus GG 15 Billion CFU CAP.SPRINK PO SCH (08:35)
--- NOTE | 2018-09-20 17:49 | Internal Medicine Prog Note ---
Internal Medicine Subjective - Subjective Service Date: 09/20/18 Patient is:: awake, non-interactive, agitated Patient Complaints of:: other (Patient is Agitated.) Per staff patient has:: no adverse event, no episodes of fall Internal Medicine Objective - Results Result Diagrams: 09/15/18 01:45 09/15/18 01:45 Recent Labs: Laboratory Last Values WBC 12.1 Th/cmm (4.8-10.8) H 09/15/18 01:45 RBC 5.80 Mil/cmm (3.80-5.20) H 09/15/18 01:45 Hgb 15.6 gm/dL (12-16) 09/15/18 01:45 Hct 47.7 % (41.0-60) 09/15/18 01:45 MCV 82.2 fl (81-100) 09/15/18 01:45 MCH 26.9 pg (27.0-31.0) L 09/15/18 01:45 MCHC Differential 32.7 pg (28.0-36.0) 09/15/18 01:45 RDW 17.2 % (11.5-20.0) 09/15/18 01:45 Plt Count 274 Th/cmm (150-400) 09/15/18 01:45 MPV 9.3 fl 09/15/18 01:45 Neutrophils % 70.8 % (40.0-80.0) 09/15/18 01:45 Lymphocytes % 22.1 % (20.0-50.0) 09/15/18 01:45 Monocytes % 6.2 % (2.0-10.0) 09/15/18 01:45 Eosinophils % 0.9 % (0.0-5.0) 09/15/18 01:45 Basophils % 0.0 % (0.0-2.0) 09/15/18 01:45 Sodium 134 mEq/L (136-145) L 09/15/18 01:45 Potassium 2.9 mEq/L (3.5-5.1) L* 09/15/18 01:45 Chloride 88 mEq/L (98-107) L 09/15/18 01:45 Carbon Dioxide 35.5 mEq/L (21.0-31.0) H 09/15/18 01:45 Anion Gap 13.4 (7.0-16.0) 09/15/18 01:45 BUN 24 mg/dL (7-25) 09/15/18 01:45 Creatinine 0.6 mg/dL (0.6-1.2) 09/15/18 01:45 Est GFR ( Amer) > 60.0 ml/min (>90) 09/15/18 01:45 Est GFR (Non-Af Amer) > 60.0 ml/min 09/15/18 01:45 BUN/Creatinine Ratio 40.0 09/15/18 01:45 Glucose 124 mg/dL (70-105) H 09/15/18 01:45 POC Glucose 143 MG/DL (70 - 105) H 09/20/18 16:19 Calcium 10.0 mg/dL (8.6-10.3) 09/15/18 01:45 Triglycerides 281 mg/dL (<150) H 09/15/18 00:00 Cholesterol 160 mg/dL (<200) 09/15/18 00:00 LDL Cholesterol Direct 84 mg/dL (75-193) 09/15/18 00:00 HDL Cholesterol 36 mg/dL (23-92) 09/15/18 00:00 - Physical Exam Vitals and I&O: Vital Signs Temp 97.9 F 09/20/18 14:00 Pulse 95 09/20/18 14:00 Resp 20 09/20/18 14:00 BP 113/78 09/20/18 16:51 Pulse Ox 96 09/20/18 14:00 Intake & Output 09/19/18 09/20/18 09/20/18 18:59 06:59 18:59 Intake Total 1500 Balance 1500 Intake: Oral 1500 Other: # Voids 3 # Bowel Movements 0 Active Medications: Current Medications Acetaminophen (Tylenol) 650 mg PO Q4HR PRN PRN Reason: Pain or Fever >101 Stop: 11/14/18 03:55 Amlodipine Besylate (Norvasc) 5 mg PO DAILY [facility] Stop: 11/14/18 08:59 Last Admin: 09/20/18 08:34 Dose: 5 mg Dextrose (D50w) 50 ml IVP PRN PRN PRN Reason: Blood Glucose less than 70 Stop: 11/14/18 07:38 Dextrose (Glutose 40%) 18.75 gm PO PRN PRN PRN Reason: Blood Glucose less than 70 Stop: 11/14/18 07:38 Furosemide (Lasix) 20 mg PO DAILY [facility] Stop: 11/14/18 08:59 Last Admin: 09/20/18 08:34 Dose: 20 mg Glucagon (Glucagen) 1 mg IM PRN PRN PRN Reason: Blood Glucose less than 70 Stop: 11/14/18 07:38 Hydrochlorothiazide (Hctz) 50 mg PO BID [facility] Stop: 11/14/18 08:59 Last Admin: 09/20/18 16:51 Dose: 50 mg Hydroxyzine HCl (Atarax) 25 mg PO BID [facility]; Protocol Stop: 11/14/18 08:59 Last Admin: 09/20/18 16:51 Dose: 25 mg Insulin Human Lispro (Humalog Insulin Sliding Scale) 0 units SUBQ ACHS [facility]; Protocol Stop: 11/14/18 11:29 Last Admin: 09/20/18 16:26 Dose: Not Given Lactobacillus Rhamnosus (Culturelle 15b) 1 each PO DAILY [facility] Stop: 11/14/18 08:59 Last Admin: 09/20/18 08:35 Dose: 1 each Lorazepam (Ativan) 0.5 mg PO Q4HR PRN; Protocol PRN Reason: Anxiety Stop: 10/15/18 03:47 Last Admin: 09/17/18 01:44 Dose: 0.5 mg Pantoprazole Sodium (Protonix) 40 mg PO DAILY [facility] Stop: 11/14/18 08:59 Last Admin: 09/20/18 08:35 Dose: 40 mg Paroxetine HCl (Paxil) 20 mg PO DAILY [facility]; Protocol Stop: 11/14/18 08:59 Last Admin: 09/20/18 08:35 Dose: 20 mg Senna (Senna) 8.6 mg PO BID [facility] Stop: 11/14/18 08:59 Last Admin: 09/20/18 16:51 Dose: 8.6 mg Simvastatin (Zocor) 20 mg PO HS [facility]; Protocol Stop: 11/14/18 20:59 Last Admin: 09/19/18 20:45 Dose: 20 mg Tramadol HCl (Ultram) 50 mg PO BID PRN PRN Reason: Pain (Moderate) Stop: 11/14/18 03:55 Zolpidem Tartrate (Ambien) 5 mg PO HS PRN PRN Reason: Insomnia Stop: 11/14/18 03:47 Last Admin: 09/18/18 22:31 Dose: 5 mg General: alert, demented, NAD HEENT: NC/AT Neck: Supple, No JVD Lungs: other (no acute respiratory distress.) Cardiovascular: Normal S1, Normal S2 Abdomen: soft, non-tender Extremities: clear Neurological: no change Internal Medicine Assmt/Plan - Assessment Assessment: #Psychosis #Dementia #HTN #OA #Iron deficiency Anemia - Plan Plan: CPM Nutritional Asmnt/Malnutr-PDOC - Dietary Evaluation Malnutrition Findings (Please click <Entered> for more info): Nutritional Asmnt/Malnutrition Start: 09/17/18 11: 12 Text: Status: Complete Freq: Protocol: Document 09/17/18 11:12 MMCECILE (Rec: 09/17/18 11:29 MMULMYRANDA CULVER- FNS1) Nutritional Asmnt/Malnutrition Patient General Information Nutritional Screening High Risk Consult Diagnosis Psychosis NOS Pertinent Medical Hx/Surgical Hx HTN, Congestive heart failure, diabetes, osteoarthritis, hyperlipidemia Subjective Information Patient was admitted from SNF. Consult recieved for "food texture". Patient was given KCL 40 meq, but K was not rechecked. In bed at time of visit. Current Diet Order/ Nutrition Support 60 gm CCHO, 2gm Sodium, no concentrated sweets, chopped Patient / S.O Not Indicated Pertinent Medications D50W, lasix, glucagon, humalog , culturelle, protonix, senna Pertinent Labs (09/15) Na 134, K 2.9, TAG 281, glucose ranging 99-172 Nutritional Hx/Data Height 5 ft Height (Calculated Centimeters) 152.4 Current Weight (lbs) 150 lb Weight (Calculated Kilograms) 68.0 Weight (Calculated Grams) 67607.9 [place] Body Weight 100 % [place] Body Weight 150 Body Mass Index (BMI) 29.2 Recent Weight Change No Weight Status Overweight GI Symptoms GI Symptoms None Last BM none noted since admission Difficult in: None Food Allergies No Cultural/Ethnic/Gnosticism Belief none noted Usual diet at home unknown Skin Integrity/Comment: Vlad 20, 2+ pitting edema Current %PO Fair (50-74%) Estimated Nutritional Goals BEE in Kcals: Using Current wt Calories/Kcals/Kg 68.1kg CBW Kcals Calculated ~4727-9088 kcal/day (22-25 kcal/kg) Protein: Using Current wt Protein g/k.8-1 gm/kg Protein Calculated ~55-65 gm/day Fluid: ml ~6292-6716 ml/day (1 ml/kcal) Nutritional Problem 1. Problem Problem Altered nutrition related lab values related to Etiology electrolyte imbalance aeb Signs/Symptoms: Na 134, K 2.9 Intervention/Recommendation Comments 1. Continue 60 gm CCHO, 2gm Sodium, Chopped diet as tolerated by patient. 2. Consider rechecking K and Na level. If remains hyponatremic, consider fluid restriction. Expected Outcomes/Goals Expected Outcomes/Goals PO intake to meet >75% of nutritional needs, weight stability or trend toward ideal body weight, skin intact , nutrition related labs to approach WNL. F/U MR 09/20-09/22
--- NOTE | 2018-09-21 02:07 | Progress Notes ---
DATE: 09/20/2018 FOLLOWUP PROGRESS NOTE Case was discussed with staff of the patient, reviewed records. The patient has been isolating herself. Continues to be unable to carry on a conversation, does not know why she is here. She, however, has started taking her medication with no side effects. Continues to be gravely disabled, unable to make safe plan for self-care. We will continue to work with the patient in group therapy, milieu therapy and adjust the medications as needed. JOB# [id number]
[2018-09-21] MEDS: INSULIN LISPRO SLIDING SCALE 100 UNITS/ML UNIT SUBQ SCH ×4 (06:52→20:32)
[2018-09-21] MEDS: Pantoprazole 40 mg EC Tab PO SCH (09:29)
[2018-09-21] MEDS: Lactobacillus Rhamnosus GG 15 Billion CFU CAP.SPRINK PO SCH (09:29)
[2018-09-21 10:27] LABS: ANION GAP 11.1 (7.0-16.0); BUN - UREA NITROGEN 39 mg/dL (7-25); CALCIUM SERUM 9.9 mg/dL (8.6-10.3); CARBON DIOXIDE 37.4 mEq/L (21.0-31.0); CHLORIDE 89 mEq/L (98-107); GFR AFRICAN-AMERICAN > 60.0 ml/min (>90); GFR NON AFRICAN-AMERICAN 59.1 ml/min; GLUCOSE 130 mg/dL (70-105); POTASSIUM SERUM 3.5 mEq/L (3.5-5.1); SODIUM SERUM 134 mEq/L (136-145)
--- NOTE | 2018-09-21 11:22 | Internal Medicine Prog Note ---
Internal Medicine Subjective - Subjective Service Date: 09/21/18 Patient seen and examined:: with staff Patient is:: awake, non-interactive, agitated Patient Complaints of:: other (Patient is easily Agitated.) Per staff patient has:: no adverse event, no episodes of fall Internal Medicine Objective - Results Result Diagrams: 09/15/18 01:45 09/21/18 10:00 Recent Labs: Laboratory Last Values WBC 12.1 Th/cmm (4.8-10.8) H 09/15/18 01:45 RBC 5.80 Mil/cmm (3.80-5.20) H 09/15/18 01:45 Hgb 15.6 gm/dL (12-16) 09/15/18 01:45 Hct 47.7 % (41.0-60) 09/15/18 01:45 MCV 82.2 fl (81-100) 09/15/18 01:45 MCH 26.9 pg (27.0-31.0) L 09/15/18 01:45 MCHC Differential 32.7 pg (28.0-36.0) 09/15/18 01:45 RDW 17.2 % (11.5-20.0) 09/15/18 01:45 Plt Count 274 Th/cmm (150-400) 09/15/18 01:45 MPV 9.3 fl 09/15/18 01:45 Neutrophils % 70.8 % (40.0-80.0) 09/15/18 01:45 Lymphocytes % 22.1 % (20.0-50.0) 09/15/18 01:45 Monocytes % 6.2 % (2.0-10.0) 09/15/18 01:45 Eosinophils % 0.9 % (0.0-5.0) 09/15/18 01:45 Basophils % 0.0 % (0.0-2.0) 09/15/18 01:45 Sodium 134 mEq/L (136-145) L 09/21/18 10:00 Potassium 3.5 mEq/L (3.5-5.1) 09/21/18 10:00 Chloride 89 mEq/L (98-107) L 09/21/18 10:00 Carbon Dioxide 37.4 mEq/L (21.0-31.0) H 09/21/18 10:00 Anion Gap 11.1 (7.0-16.0) 09/21/18 10:00 BUN 39 mg/dL (7-25) H 09/21/18 10:00 Creatinine 1.0 mg/dL (0.6-1.2) 09/21/18 10:00 Est GFR ( Amer) > 60.0 ml/min (>90) 09/21/18 10:00 Est GFR (Non-Af Amer) 59.1 ml/min 09/21/18 10:00 BUN/Creatinine Ratio 39.0 09/21/18 10:00 Glucose 130 mg/dL (70-105) H 09/21/18 10:00 POC Glucose 102 MG/DL (70 - 105) 09/21/18 06:04 Calcium 9.9 mg/dL (8.6-10.3) 09/21/18 10:00 Triglycerides 281 mg/dL (<150) H 09/15/18 00:00 Cholesterol 160 mg/dL (<200) 09/15/18 00:00 LDL Cholesterol Direct 84 mg/dL (75-193) 09/15/18 00:00 HDL Cholesterol 36 mg/dL (23-92) 09/15/18 00:00 - Physical Exam Vitals and I&O: Vital Signs Temp 97.6 F 09/21/18 06:37 Pulse 90 09/21/18 09:30 Resp 20 09/21/18 07:37 BP 100/62 09/21/18 09:30 Pulse Ox 92 09/21/18 07:37 Intake & Output 09/20/18 09/21/18 09/21/18 18:59 06:59 18:59 Intake Total 1200 420 Balance 1200 420 Intake: Oral 1200 420 Other: # Voids 2 # Bowel Movements 1 0 Active Medications: Current Medications Acetaminophen (Tylenol) 650 mg PO Q4HR PRN PRN Reason: Pain or Fever >101 Stop: 11/14/18 03:55 Amlodipine Besylate (Norvasc) 5 mg PO DAILY [facility] Stop: 11/14/18 08:59 Last Admin: 09/21/18 09:30 Dose: Not Given Dextrose (D50w) 50 ml IVP PRN PRN PRN Reason: Blood Glucose less than 70 Stop: 11/14/18 07:38 Dextrose (Glutose 40%) 18.75 gm PO PRN PRN PRN Reason: Blood Glucose less than 70 Stop: 11/14/18 07:38 Furosemide (Lasix) 20 mg PO DAILY [facility] Stop: 11/14/18 08:59 Last Admin: 09/21/18 09:29 Dose: Not Given Glucagon (Glucagen) 1 mg IM PRN PRN PRN Reason: Blood Glucose less than 70 Stop: 11/14/18 07:38 Hydrochlorothiazide (Hctz) 50 mg PO BID [facility] Stop: 11/14/18 08:59 Last Admin: 09/21/18 09:29 Dose: Not Given Hydroxyzine HCl (Atarax) 25 mg PO BID [facility]; Protocol Stop: 11/14/18 08:59 Last Admin: 09/21/18 09:28 Dose: 25 mg Insulin Human Lispro (Humalog Insulin Sliding Scale) 0 units SUBQ ACHS [facility]; Protocol Stop: 11/14/18 11:29 Last Admin: 09/21/18 06:52 Dose: Not Given Lactobacillus Rhamnosus (Culturelle 15b) 1 each PO DAILY [facility] Stop: 11/14/18 08:59 Last Admin: 09/21/18 09:29 Dose: 1 each Lorazepam (Ativan) 0.5 mg PO Q4HR PRN; Protocol PRN Reason: Anxiety Stop: 10/15/18 03:47 Last Admin: 09/17/18 01:44 Dose: 0.5 mg Pantoprazole Sodium (Protonix) 40 mg PO DAILY [facility] Stop: 11/14/18 08:59 Last Admin: 09/21/18 09:29 Dose: 40 mg Paroxetine HCl (Paxil) 20 mg PO DAILY [facility]; Protocol Stop: 11/14/18 08:59 Last Admin: 09/21/18 09:29 Dose: 20 mg Senna (Senna) 8.6 mg PO BID [facility] Stop: 11/14/18 08:59 Last Admin: 09/21/18 09:29 Dose: 8.6 mg Simvastatin (Zocor) 20 mg PO HS [facility]; Protocol Stop: 11/14/18 20:59 Last Admin: 09/20/18 21:08 Dose: 20 mg Tramadol HCl (Ultram) 50 mg PO BID PRN PRN Reason: Pain (Moderate) Stop: 11/14/18 03:55 Zolpidem Tartrate (Ambien) 5 mg PO HS PRN PRN Reason: Insomnia Stop: 11/14/18 03:47 Last Admin: 09/20/18 21:08 Dose: 5 mg Physical Exam: 63 y/o female patient was admitted due to Agitation, Suicidal ideation and R/o Bipolar disorder. Patient continues to be irritable and agitated. General: alert, demented, NAD HEENT: NC/AT Neck: Supple, No JVD Lungs: other (no acute respiratory distress.) Cardiovascular: Normal S1, Normal S2 Abdomen: soft, non-tender Extremities: clear Neurological: no change Internal Medicine Assmt/Plan - Assessment Assessment: Agitation. Suicidal ideation. R/o Bipolar Disorder. Depression. HTN. CHF. Diabetes. OA. Hyperlipidemia. GERD. - Plan Plan: Continuation of care. Monitor Vitals and Labs. Continue present meds as directed. Pain management. Fall precaution. Psych management per Psych. Continue present care management. Nutritional Asmnt/Malnutr-PDOC - Dietary Evaluation Malnutrition Findings (Please click <Entered> for more info): Nutritional Asmnt/Malnutrition Start: 09/17/18 11: 12 Text: Status: Complete Freq: Protocol: Document 09/17/18 11:12 MIKE (Rec: 09/17/18 11:29 [email or web address] CULVER- [email or web address]) Nutritional Asmnt/Malnutrition Patient General Information Nutritional Screening High Risk Consult Diagnosis Psychosis NOS Pertinent Medical Hx/Surgical Hx HTN, Congestive heart failure, diabetes, osteoarthritis, hyperlipidemia Subjective Information Patient was admitted from SNF. Consult recieved for "food texture". Patient was given KCL 40 meq, but K was not rechecked. In bed at time of visit. Current Diet Order/ Nutrition Support 60 gm CCHO, 2gm Sodium, no concentrated sweets, chopped Patient / S.O Not Indicated Pertinent Medications D50W, lasix, glucagon, humalog , culturelle, protonix, senna Pertinent Labs (09/15) Na 134, K 2.9, TAG 281, glucose ranging 99-172 Nutritional Hx/Data Height 1.52 m Height (Calculated Centimeters) 152.4 Current Weight (lbs) 68.039 kg Weight (Calculated Kilograms) 68.0 Weight (Calculated Grams) 38517.9 [place] Body Weight 100 % [place] Body Weight 150 Body Mass Index (BMI) 29.2 Recent Weight Change No Weight Status Overweight GI Symptoms GI Symptoms None Last BM none noted since admission Difficult in: None Food Allergies No Cultural/Ethnic/[employer] Belief none noted Usual diet at home unknown Skin Integrity/Comment: Vlad 20, 2+ pitting edema Current %PO Fair (50-74%) Estimated Nutritional Goals BEE in Kcals: Using Current wt Calories/Kcals/Kg 68.1kg CBW Kcals Calculated ~8726-3935 kcal/day (22-25 kcal/kg) Protein: Using Current wt Protein g/k.8-1 gm/kg Protein Calculated ~55-65 gm/day Fluid: ml ~5654-0578 ml/day (1 ml/kcal) Nutritional Problem 1. Problem Problem Altered nutrition related lab values related to Etiology electrolyte imbalance aeb Signs/Symptoms: Na 134, K 2.9 Intervention/Recommendation Comments 1. Continue 60 gm CCHO, 2gm Sodium, Chopped diet as tolerated by patient. 2. Consider rechecking K and Na level. If remains hyponatremic, consider fluid restriction. Expected Outcomes/Goals Expected Outcomes/Goals PO intake to meet >75% of nutritional needs, weight stability or trend toward ideal body weight, skin intact , nutrition related labs to approach WNL. F/U MR 09/20-09/22
--- NOTE | 2018-09-22 01:45 | Progress Notes ---
DATE: 09/21/2018 SUBJECTIVE: Case was discussed with staff of the patient, reviewed records. The patient has been taking her medications, but continues to be confused, unpredictable, impulsive, needing redirection. Continues to have poor insight in general ____. She is sleeping well. She is able to feed herself. No side effects with the medication, no sedation or nausea. She is on Paxil 20 mg daily. I will continue the patient in group therapy, milieu therapy, adjust her medication as needed. JOB# [id number]
[2018-09-22] MEDS: INSULIN LISPRO SLIDING SCALE 100 UNITS/ML UNIT SUBQ SCH ×4 (06:46→21:27)
[2018-09-22] MEDS: Pantoprazole 40 mg EC Tab PO SCH (08:52)
[2018-09-22] MEDS: Lactobacillus Rhamnosus GG 15 Billion CFU CAP.SPRINK PO SCH (08:52)
--- NOTE | 2018-09-23 00:06 | Progress Notes ---
DATE: 09/22/2018 SUBJECTIVE: Case was discussed with staff of the patient, reviewed records. The patient has been intrusive, going into other patients' rooms, has been unpredictable, impulsive; however, she started taking her medication. She continues to be demented, confused, unable to make safe plan for self-care. She continues to have poor insight, confused. I will be adding Aricept to her medication, no side effects with the medication, no sedation, and no nausea. We will continue to work with the patient in group therapy, milieu therapy, and adjust the medications as needed. JOB# [id number]
--- NOTE | 2018-09-23 02:25 | Progress Notes ---
DATE: 09/22/2018 SUBJECTIVE: The patient was seen in her room. The patient is asleep, but easily arousable. The patient still appears to have poor cognition, appears to be guarded, episodes of behavioral outbursts. Otherwise, the patient appears to be in no acute distress. OBJECTIVE: VITAL SIGNS: Temperature 98.1, heart rate 96, blood pressure 101/67, respirations 20, 92% on room air. HEENT: Head is atraumatic and normocephalic. Eyes: Bilateral conjunctivae are clear. Bilateral pupils are equally round and reactive. NECK: Supple. No JVD. CARDIOVASCULAR: S1 and S2 without murmur. PULMONARY: Clear to auscultation. GASTROINTESTINAL: Soft and nontender without guarding. Positive bowel sounds. MUSCULOSKELETAL: No clubbing. No cyanosis noted. ASSESSMENT: 1. Bipolar disorder. 2. Hypertension. 3. Osteoarthritis. 4. Diabetes. 5. Gastroesophageal reflux disease. 6. Hyperlipidemia. PLAN: We will keep the patient to inpatient psychiatric unit. We will followup with the psychiatrist to monitor the patient's condition and behavior. Treatment plans were discussed with the patient's nurse. Treatment plans were discussed with the course. JOB# [id number]
[2018-09-23] MEDS: INSULIN LISPRO SLIDING SCALE 100 UNITS/ML UNIT SUBQ SCH ×4 (06:55→20:42)
[2018-09-23] MEDS: Lactobacillus Rhamnosus GG 15 Billion CFU CAP.SPRINK PO SCH (08:31)
[2018-09-23] MEDS: Pantoprazole 40 mg EC Tab PO SCH (08:32)
--- NOTE | 2018-09-23 18:22 | Internal Medicine Prog Note ---
Internal Medicine Subjective - Subjective Service Date: 09/23/18 Patient seen and examined:: with staff Patient is:: awake, non-interactive, agitated Patient Complaints of:: other (Patient is easily Agitated.) Per staff patient has:: no adverse event, no episodes of fall Internal Medicine Objective - Results Result Diagrams: 09/15/18 01:45 09/21/18 10:00 Recent Labs: Laboratory Last Values WBC 12.1 Th/cmm (4.8-10.8) H 09/15/18 01:45 RBC 5.80 Mil/cmm (3.80-5.20) H 09/15/18 01:45 Hgb 15.6 gm/dL (12-16) 09/15/18 01:45 Hct 47.7 % (41.0-60) 09/15/18 01:45 MCV 82.2 fl (81-100) 09/15/18 01:45 MCH 26.9 pg (27.0-31.0) L 09/15/18 01:45 MCHC Differential 32.7 pg (28.0-36.0) 09/15/18 01:45 RDW 17.2 % (11.5-20.0) 09/15/18 01:45 Plt Count 274 Th/cmm (150-400) 09/15/18 01:45 MPV 9.3 fl 09/15/18 01:45 Neutrophils % 70.8 % (40.0-80.0) 09/15/18 01:45 Lymphocytes % 22.1 % (20.0-50.0) 09/15/18 01:45 Monocytes % 6.2 % (2.0-10.0) 09/15/18 01:45 Eosinophils % 0.9 % (0.0-5.0) 09/15/18 01:45 Basophils % 0.0 % (0.0-2.0) 09/15/18 01:45 Sodium 134 mEq/L (136-145) L 09/21/18 10:00 Potassium 3.5 mEq/L (3.5-5.1) 09/21/18 10:00 Chloride 89 mEq/L (98-107) L 09/21/18 10:00 Carbon Dioxide 37.4 mEq/L (21.0-31.0) H 09/21/18 10:00 Anion Gap 11.1 (7.0-16.0) 09/21/18 10:00 BUN 39 mg/dL (7-25) H 09/21/18 10:00 Creatinine 1.0 mg/dL (0.6-1.2) 09/21/18 10:00 Est GFR ( Amer) > 60.0 ml/min (>90) 09/21/18 10:00 Est GFR (Non-Af Amer) 59.1 ml/min 09/21/18 10:00 BUN/Creatinine Ratio 39.0 09/21/18 10:00 Glucose 130 mg/dL (70-105) H 09/21/18 10:00 POC Glucose 106 MG/DL (70 - 105) H 09/23/18 16:58 Calcium 9.9 mg/dL (8.6-10.3) 09/21/18 10:00 Triglycerides 281 mg/dL (<150) H 09/15/18 00:00 Cholesterol 160 mg/dL (<200) 09/15/18 00:00 LDL Cholesterol Direct 84 mg/dL (75-193) 09/15/18 00:00 HDL Cholesterol 36 mg/dL (23-92) 09/15/18 00:00 - Physical Exam Vitals and I&O: Vital Signs Temp 98.3 F 09/23/18 14:00 Pulse 87 09/23/18 14:00 Resp 18 09/23/18 14:00 BP 109/68 09/23/18 16:51 Pulse Ox 97 09/23/18 14:00 Intake & Output 09/22/18 09/23/18 09/23/18 18:59 06:59 18:59 Intake Total 950 120 Balance 950 120 Intake: Oral 950 120 Other: # Voids 3 Active Medications: Current Medications Acetaminophen (Tylenol) 650 mg PO Q4HR PRN PRN Reason: Pain or Fever >101 Stop: 11/14/18 03:55 Amlodipine Besylate (Norvasc) 5 mg PO DAILY [facility] Stop: 11/14/18 08:59 Last Admin: 09/23/18 08:26 Dose: Not Given Dextrose (D50w) 50 ml IVP PRN PRN PRN Reason: Blood Glucose less than 70 Stop: 11/14/18 07:38 Dextrose (Glutose 40%) 18.75 gm PO PRN PRN PRN Reason: Blood Glucose less than 70 Stop: 11/14/18 07:38 Donepezil HCl (Aricept) 5 mg PO HS [facility] Stop: 11/21/18 20:59 Last Admin: 09/22/18 20:12 Dose: 5 mg Furosemide (Lasix) 20 mg PO DAILY [facility] Stop: 11/14/18 08:59 Last Admin: 09/23/18 08:26 Dose: Not Given Glucagon (Glucagen) 1 mg IM PRN PRN PRN Reason: Blood Glucose less than 70 Stop: 11/14/18 07:38 Hydrochlorothiazide (Hctz) 50 mg PO BID [facility] Stop: 11/14/18 08:59 Last Admin: 09/23/18 16:51 Dose: Not Given Hydroxyzine HCl (Atarax) 25 mg PO BID [facility]; Protocol Stop: 11/14/18 08:59 Last Admin: 09/23/18 16:54 Dose: 25 mg Insulin Human Lispro (Humalog Insulin Sliding Scale) 0 units SUBQ ACHS [facility]; Protocol Stop: 11/14/18 11:29 Last Admin: 09/23/18 17:00 Dose: Not Given Lactobacillus Rhamnosus (Culturelle 15b) 1 each PO DAILY [facility] Stop: 11/14/18 08:59 Last Admin: 09/23/18 08:31 Dose: 1 each Lorazepam (Ativan) 0.5 mg PO Q4HR PRN; Protocol PRN Reason: Anxiety Stop: 10/15/18 03:47 Last Admin: 09/22/18 20:14 Dose: 0.5 mg Pantoprazole Sodium (Protonix) 40 mg PO DAILY [facility] Stop: 11/14/18 08:59 Last Admin: 09/23/18 08:32 Dose: 40 mg Paroxetine HCl (Paxil) 20 mg PO DAILY [facility]; Protocol Stop: 11/14/18 08:59 Last Admin: 09/23/18 08:31 Dose: 20 mg Senna (Senna) 8.6 mg PO BID [facility] Stop: 11/14/18 08:59 Last Admin: 09/23/18 16:55 Dose: 8.6 mg Simvastatin (Zocor) 20 mg PO HS [facility]; Protocol Stop: 11/14/18 20:59 Last Admin: 09/22/18 20:12 Dose: 20 mg Tramadol HCl (Ultram) 50 mg PO BID PRN PRN Reason: Pain (Moderate) Stop: 11/14/18 03:55 Zolpidem Tartrate (Ambien) 5 mg PO HS PRN PRN Reason: Insomnia Stop: 11/14/18 03:47 Last Admin: 09/22/18 20:12 Dose: 5 mg Physical Exam: 63 y/o female patient was admitted due to Agitation, Suicidal ideation and R/o Bipolar disorder. Patient continues to be intrusive, demented and confused. We will continue to monitor and treat patient accordingly. General: alert, demented, NAD HEENT: NC/AT Neck: Supple, No JVD Lungs: other (no acute respiratory distress.) Cardiovascular: Normal S1, Normal S2 Abdomen: soft, non-tender Extremities: clear Neurological: no change Internal Medicine Assmt/Plan - Assessment Assessment: Agitation. Suicidal ideation. R/o Bipolar Disorder. Depression. HTN. CHF. Diabetes. OA. Hyperlipidemia. GERD. - Plan Plan: Continuation of care. Monitor Vitals and Labs. Continue present meds as directed. Pain management. Fall precaution. Psych management per Psych. Continue present care management. Nutritional Asmnt/Malnutr-PDOC - Dietary Evaluation Malnutrition Findings (Please click <Entered> for more info): Nutritional Asmnt/Malnutrition Start: 09/17/18 11: 12 Text: Status: Complete Freq: Protocol: Document 09/17/18 11:12 MIKE (Rec: 09/17/18 11:29 MMCECILE CULVER- FNS1) Nutritional Asmnt/Malnutrition Patient General Information Nutritional Screening High Risk Consult Diagnosis Psychosis NOS Pertinent Medical Hx/Surgical Hx HTN, Congestive heart failure, diabetes, osteoarthritis, hyperlipidemia Subjective Information Patient was admitted from SNF. Consult recieved for "food texture". Patient was given KCL 40 meq, but K was not rechecked. In bed at time of visit. Current Diet Order/ Nutrition Support 60 gm CCHO, 2gm Sodium, no concentrated sweets, chopped Patient / S.O Not Indicated Pertinent Medications D50W, lasix, glucagon, humalog , culturelle, protonix, senna Pertinent Labs (09/15) Na 134, K 2.9, TAG 281, glucose ranging 99-172 Nutritional Hx/Data Height 1.52 m Height (Calculated Centimeters) 152.4 Current Weight (lbs) 68.039 kg Weight (Calculated Kilograms) 68.0 Weight (Calculated Grams) 53197.9 [place] Body Weight 100 % [place] Body Weight 150 Body Mass Index (BMI) 29.2 Recent Weight Change No Weight Status Overweight GI Symptoms GI Symptoms None Last BM none noted since admission Difficult in: None Food Allergies No Cultural/Ethnic/M[employer]on Belief none noted Usual diet at home unknown Skin Integrity/Comment: Vlad 20, 2+ pitting edema Current %PO Fair (50-74%) Estimated Nutritional Goals BEE in Kcals: Using Current wt Calories/Kcals/Kg 68.1kg CBW Kcals Calculated ~9521-4168 kcal/day (22-25 kcal/kg) Protein: Using Current wt Protein g/k.8-1 gm/kg Protein Calculated ~55-65 gm/day Fluid: ml ~1419-7311 ml/day (1 ml/kcal) Nutritional Problem 1. Problem Problem Altered nutrition related lab values related to Etiology electrolyte imbalance aeb Signs/Symptoms: Na 134, K 2.9 Intervention/Recommendation Comments 1. Continue 60 gm CCHO, 2gm Sodium, Chopped diet as tolerated by patient. 2. Consider rechecking K and Na level. If remains hyponatremic, consider fluid restriction. Expected Outcomes/Goals Expected Outcomes/Goals PO intake to meet >75% of nutritional needs, weight stability or trend toward ideal body weight, skin intact , nutrition related labs to approach WNL. F/U MR 09/20-09/22
--- NOTE | 2018-09-24 03:40 | Progress Notes ---
DATE: 09/23/2018 FOLLOWUP PROGRESS NOTE Case was discussed with staff of the patient, reviewed records. The patient continues to be confused, unpredictable, impulsive, needing redirection, unable to make safe plan for self-care. She is sleeping better, eating better. No side effects of the medication, no sedation, no nausea. She tends to be intrusive. She tolerated the Aricept and Paxil and we will continue to work with the patient in group therapy, milieu therapy, adjust the medication as needed. JOB# [id number]
[2018-09-24] MEDS: INSULIN LISPRO SLIDING SCALE 100 UNITS/ML UNIT SUBQ SCH ×4 (06:52→20:54)
[2018-09-24] MEDS: Lactobacillus Rhamnosus GG 15 Billion CFU CAP.SPRINK PO SCH (09:50)
[2018-09-24] MEDS: Pantoprazole 40 mg EC Tab PO SCH (09:50)
--- NOTE | 2018-09-24 10:28 | Internal Medicine Prog Note ---
Internal Medicine Subjective - Subjective Service Date: 09/24/18 Patient seen and examined:: with staff Patient is:: awake, non-interactive, agitated Patient Complaints of:: other (Patient is easily Agitated.) Per staff patient has:: no adverse event, no episodes of fall Internal Medicine Objective - Results Result Diagrams: 09/15/18 01:45 09/21/18 10:00 Recent Labs: Laboratory Last Values WBC 12.1 Th/cmm (4.8-10.8) H 09/15/18 01:45 RBC 5.80 Mil/cmm (3.80-5.20) H 09/15/18 01:45 Hgb 15.6 gm/dL (12-16) 09/15/18 01:45 Hct 47.7 % (41.0-60) 09/15/18 01:45 MCV 82.2 fl (81-100) 09/15/18 01:45 MCH 26.9 pg (27.0-31.0) L 09/15/18 01:45 MCHC Differential 32.7 pg (28.0-36.0) 09/15/18 01:45 RDW 17.2 % (11.5-20.0) 09/15/18 01:45 Plt Count 274 Th/cmm (150-400) 09/15/18 01:45 MPV 9.3 fl 09/15/18 01:45 Neutrophils % 70.8 % (40.0-80.0) 09/15/18 01:45 Lymphocytes % 22.1 % (20.0-50.0) 09/15/18 01:45 Monocytes % 6.2 % (2.0-10.0) 09/15/18 01:45 Eosinophils % 0.9 % (0.0-5.0) 09/15/18 01:45 Basophils % 0.0 % (0.0-2.0) 09/15/18 01:45 Sodium 134 mEq/L (136-145) L 09/21/18 10:00 Potassium 3.5 mEq/L (3.5-5.1) 09/21/18 10:00 Chloride 89 mEq/L (98-107) L 09/21/18 10:00 Carbon Dioxide 37.4 mEq/L (21.0-31.0) H 09/21/18 10:00 Anion Gap 11.1 (7.0-16.0) 09/21/18 10:00 BUN 39 mg/dL (7-25) H 09/21/18 10:00 Creatinine 1.0 mg/dL (0.6-1.2) 09/21/18 10:00 Est GFR ( Amer) > 60.0 ml/min (>90) 09/21/18 10:00 Est GFR (Non-Af Amer) 59.1 ml/min 09/21/18 10:00 BUN/Creatinine Ratio 39.0 09/21/18 10:00 Glucose 130 mg/dL (70-105) H 09/21/18 10:00 POC Glucose 108 MG/DL (70 - 105) H 09/24/18 06:18 Calcium 9.9 mg/dL (8.6-10.3) 09/21/18 10:00 Triglycerides 281 mg/dL (<150) H 09/15/18 00:00 Cholesterol 160 mg/dL (<200) 09/15/18 00:00 LDL Cholesterol Direct 84 mg/dL (75-193) 09/15/18 00:00 HDL Cholesterol 36 mg/dL (23-92) 09/15/18 00:00 - Physical Exam Vitals and I&O: Vital Signs Temp 98.6 F 09/24/18 06:31 Pulse 66 09/24/18 07:42 Resp 18 09/24/18 07:42 BP 112/65 09/24/18 09:52 Pulse Ox 94 09/24/18 07:42 Intake & Output 09/23/18 09/24/18 09/24/18 18:59 06:59 18:59 Intake Total 1400 120 Balance 1400 120 Intake: Oral 1400 120 Other: # Voids 4 3 # Bowel Movements 0 Active Medications: Current Medications Acetaminophen (Tylenol) 650 mg PO Q4HR PRN PRN Reason: Pain or Fever >101 Stop: 11/14/18 03:55 Amlodipine Besylate (Norvasc) 5 mg PO DAILY AYDEE Stop: 11/14/18 08:59 Last Admin: 09/24/18 09:52 Dose: Not Given Dextrose (D50w) 50 ml IVP PRN PRN PRN Reason: Blood Glucose less than 70 Stop: 11/14/18 07:38 Dextrose (Glutose 40%) 18.75 gm PO PRN PRN PRN Reason: Blood Glucose less than 70 Stop: 11/14/18 07:38 Donepezil HCl (Aricept) 5 mg PO HS [facility] Stop: 11/21/18 20:59 Last Admin: 09/23/18 20:42 Dose: 5 mg Furosemide (Lasix) 20 mg PO DAILY AYDEE Stop: 11/14/18 08:59 Last Admin: 09/24/18 09:50 Dose: 20 mg Glucagon (Glucagen) 1 mg IM PRN PRN PRN Reason: Blood Glucose less than 70 Stop: 11/14/18 07:38 Hydrochlorothiazide (Hctz) 50 mg PO BID AYDEE Stop: 11/14/18 08:59 Last Admin: 09/24/18 09:51 Dose: Not Given Hydroxyzine HCl (Atarax) 25 mg PO BID [facility]; Protocol Stop: 11/14/18 08:59 Last Admin: 09/24/18 09:51 Dose: 25 mg Insulin Human Lispro (Humalog Insulin Sliding Scale) 0 units SUBQ ACHS [facility]; Protocol Stop: 11/14/18 11:29 Last Admin: 09/24/18 06:52 Dose: Not Given Lactobacillus Rhamnosus (Culturelle 15b) 1 each PO DAILY [facility] Stop: 11/14/18 08:59 Last Admin: 09/24/18 09:50 Dose: 1 each Lorazepam (Ativan) 0.5 mg PO Q4HR PRN; Protocol PRN Reason: Anxiety Stop: 10/15/18 03:47 Last Admin: 09/22/18 20:14 Dose: 0.5 mg Pantoprazole Sodium (Protonix) 40 mg PO DAILY [facility] Stop: 11/14/18 08:59 Last Admin: 09/24/18 09:50 Dose: 40 mg Paroxetine HCl (Paxil) 20 mg PO DAILY [facility]; Protocol Stop: 11/14/18 08:59 Last Admin: 09/24/18 09:51 Dose: 20 mg Senna (Senna) 8.6 mg PO BID [facility] Stop: 11/14/18 08:59 Last Admin: 09/24/18 09:52 Dose: 8.6 mg Simvastatin (Zocor) 20 mg PO HS [facility]; Protocol Stop: 11/14/18 20:59 Last Admin: 09/23/18 20:42 Dose: 20 mg Tramadol HCl (Ultram) 50 mg PO BID PRN PRN Reason: Pain (Moderate) Stop: 11/14/18 03:55 Zolpidem Tartrate (Ambien) 5 mg PO HS PRN PRN Reason: Insomnia Stop: 11/14/18 03:47 Last Admin: 09/23/18 20:42 Dose: 5 mg Physical Exam: 63 y/o female patient was admitted due to Agitation, Suicidal ideation and R/o Bipolar disorder. Patient continues to be intrusive going into other patient's rooms, demented and very confused. We will continue to monitor and treat patient accordingly. General: alert, demented, NAD HEENT: NC/AT Neck: Supple, No JVD Lungs: other (no acute respiratory distress.) Cardiovascular: Normal S1, Normal S2 Abdomen: soft, non-tender Extremities: clear Neurological: no change Internal Medicine Assmt/Plan - Assessment Assessment: Agitation. Suicidal ideation. R/o Bipolar Disorder. Depression. HTN. CHF. Diabetes. OA. Hyperlipidemia. GERD. - Plan Plan: Continuation of care. Monitor Vitals and Labs. Continue present meds as directed. Pain management. Fall precaution. Psych management per Psych. Continue present care management. Nutritional Asmnt/Malnutr-PDOC - Dietary Evaluation Malnutrition Findings (Please click <Entered> for more info): Nutritional Asmnt/Malnutrition Start: 09/17/18 11: 12 Text: Status: Complete Freq: Protocol: Document 09/17/18 11:12 MMCECILE (Rec: 09/17/18 11:29 [email or web address] CULVER- FNS1) Nutritional Asmnt/Malnutrition Patient General Information Nutritional Screening High Risk Consult Diagnosis Psychosis NOS Pertinent Medical Hx/Surgical Hx HTN, Congestive heart failure, diabetes, osteoarthritis, hyperlipidemia Subjective Information Patient was admitted from SNF. Consult recieved for "food texture". Patient was given KCL 40 meq, but K was not rechecked. In bed at time of visit. Current Diet Order/ Nutrition Support 60 gm CCHO, 2gm Sodium, no concentrated sweets, chopped Patient / S.O Not Indicated Pertinent Medications D50W, lasix, glucagon, humalog , culturelle, protonix, senna Pertinent Labs (09/15) Na 134, K 2.9, TAG 281, glucose ranging 99-172 Nutritional Hx/Data Height 1.52 m Height (Calculated Centimeters) 152.4 Current Weight (lbs) 68.039 kg Weight (Calculated Kilograms) 68.0 Weight (Calculated Grams) 35621.9 [place] Body Weight 100 % [place] Body Weight 150 Body Mass Index (BMI) 29.2 Recent Weight Change No Weight Status Overweight GI Symptoms GI Symptoms None Last BM none noted since admission Difficult in: None Food Allergies No Cultural/Ethnic/Congregation Belief none noted Usual diet at home unknown Skin Integrity/Comment: Vlad 20, 2+ pitting edema Current %PO Fair (50-74%) Estimated Nutritional Goals BEE in Kcals: Using Current wt Calories/Kcals/Kg 68.1kg CBW Kcals Calculated ~1398-2389 kcal/day (22-25 kcal/kg) Protein: Using Current wt Protein g/k.8-1 gm/kg Protein Calculated ~55-65 gm/day Fluid: ml ~8138-3130 ml/day (1 ml/kcal) Nutritional Problem 1. Problem Problem Altered nutrition related lab values related to Etiology electrolyte imbalance aeb Signs/Symptoms: Na 134, K 2.9 Intervention/Recommendation Comments 1. Continue 60 gm CCHO, 2gm Sodium, Chopped diet as tolerated by patient. 2. Consider rechecking K and Na level. If remains hyponatremic, consider fluid restriction. Expected Outcomes/Goals Expected Outcomes/Goals PO intake to meet >75% of nutritional needs, weight stability or trend toward ideal body weight, skin intact , nutrition related labs to approach WNL. F/U MR 09/20-09/22
--- NOTE | 2018-09-25 03:47 | Progress Notes ---
DATE: 09/24/2018 A 63-year-old female coming from a convalescent home, increased confusion, verbalizing thoughts of suicide, wanting to kill herself, depressed, anxious. History of depression. On [id number], the patient states the year is "2019," does not know the month, does not know where she is, believing that she is at rehab. She is not quite sure why she is in the hospital, mostly withdrawn, keeps to self, impulsive, unpredictable. Staff noting she does require some prompting and redirection. Confusion noted. PLAN: We will continue to monitor. The patient is not safe for a lower level of care given the above reasons. Medications were noted. Consider the addition of Namenda. She is currently on Paxil, Aricept. JOB# [id number]
[2018-09-25] MEDS: INSULIN LISPRO SLIDING SCALE 100 UNITS/ML UNIT SUBQ SCH ×4 (06:45→20:59)
[2018-09-25] MEDS: Lactobacillus Rhamnosus GG 15 Billion CFU CAP.SPRINK PO SCH (09:07)
[2018-09-25] MEDS: Pantoprazole 40 mg EC Tab PO SCH (09:08)
[2018-09-25] MEDS ORDERED: Magnesium Hydroxide (MOM) 30 mL UDC PO PRN (15:09)
--- NOTE | 2018-09-25 22:39 | Progress Notes ---
DATE: 09/25/2018 The patient is currently in the hospital, generally calm, mostly keeps to herself, complaining of some constipation, AO to name and place only. She still is not quite sure why she is in the hospital. The patient initially admitted toward the end of 08/2018 to the [facility], increased confusion after suicidal, wanting to kill herself. The patient really does not know why she is in the hospital. She does not have any thoughts of self-harm are decreasing, dissipating, taking Paxil. Fair sleep, fair appetite, seems internally preoccupied, mostly keeping to herself. Recent dose initiation of Namenda. We will continue to monitor. Medications were noted. We are also trying to help her with placement. She is unable to care for her basic needs at this time. JOB# [id number]
[2018-09-26] MEDS: INSULIN LISPRO SLIDING SCALE 100 UNITS/ML UNIT SUBQ SCH ×4 (06:42→20:48)
[2018-09-26] MEDS: Lactobacillus Rhamnosus GG 15 Billion CFU CAP.SPRINK PO SCH (08:33)
[2018-09-26] MEDS: Pantoprazole 40 mg EC Tab PO SCH (08:33)
--- NOTE | 2018-09-26 10:57 | Internal Medicine Prog Note ---
Internal Medicine Subjective - Subjective Service Date: 09/26/18 Patient is:: awake, non-interactive, agitated Patient Complaints of:: other (Patient is easily Agitated.) Per staff patient has:: no adverse event, no episodes of fall Internal Medicine Objective - Results Result Diagrams: 09/15/18 01:45 09/21/18 10:00 Recent Labs: Laboratory Last Values WBC 12.1 Th/cmm (4.8-10.8) H 09/15/18 01:45 RBC 5.80 Mil/cmm (3.80-5.20) H 09/15/18 01:45 Hgb 15.6 gm/dL (12-16) 09/15/18 01:45 Hct 47.7 % (41.0-60) 09/15/18 01:45 MCV 82.2 fl (81-100) 09/15/18 01:45 MCH 26.9 pg (27.0-31.0) L 09/15/18 01:45 MCHC Differential 32.7 pg (28.0-36.0) 09/15/18 01:45 RDW 17.2 % (11.5-20.0) 09/15/18 01:45 Plt Count 274 Th/cmm (150-400) 09/15/18 01:45 MPV 9.3 fl 09/15/18 01:45 Neutrophils % 70.8 % (40.0-80.0) 09/15/18 01:45 Lymphocytes % 22.1 % (20.0-50.0) 09/15/18 01:45 Monocytes % 6.2 % (2.0-10.0) 09/15/18 01:45 Eosinophils % 0.9 % (0.0-5.0) 09/15/18 01:45 Basophils % 0.0 % (0.0-2.0) 09/15/18 01:45 Sodium 134 mEq/L (136-145) L 09/21/18 10:00 Potassium 3.5 mEq/L (3.5-5.1) 09/21/18 10:00 Chloride 89 mEq/L (98-107) L 09/21/18 10:00 Carbon Dioxide 37.4 mEq/L (21.0-31.0) H 09/21/18 10:00 Anion Gap 11.1 (7.0-16.0) 09/21/18 10:00 BUN 39 mg/dL (7-25) H 09/21/18 10:00 Creatinine 1.0 mg/dL (0.6-1.2) 09/21/18 10:00 Est GFR ( Amer) > 60.0 ml/min (>90) 09/21/18 10:00 Est GFR (Non-Af Amer) 59.1 ml/min 09/21/18 10:00 BUN/Creatinine Ratio 39.0 09/21/18 10:00 Glucose 130 mg/dL (70-105) H 09/21/18 10:00 POC Glucose 103 MG/DL (70 - 105) 09/26/18 05:53 Calcium 9.9 mg/dL (8.6-10.3) 09/21/18 10:00 Triglycerides 281 mg/dL (<150) H 09/15/18 00:00 Cholesterol 160 mg/dL (<200) 09/15/18 00:00 LDL Cholesterol Direct 84 mg/dL (75-193) 09/15/18 00:00 HDL Cholesterol 36 mg/dL (23-92) 09/15/18 00:00 - Physical Exam Vitals and I&O: Vital Signs Temp 98.1 F 09/26/18 06:23 Pulse 72 09/26/18 08:24 Resp 19 09/26/18 10:50 BP 113/61 09/26/18 08:24 Pulse Ox 93 09/26/18 07:17 Intake & Output 09/25/18 09/26/18 09/26/18 18:59 06:59 18:59 Intake Total 700 120 Balance 700 120 Intake: Oral 700 120 Other: # Voids 2 3 # Bowel Movements 2 0 Active Medications: Current Medications Acetaminophen (Tylenol) 650 mg PO Q4HR PRN PRN Reason: Pain or Fever >101 Stop: 11/14/18 03:55 Amlodipine Besylate (Norvasc) 5 mg PO DAILY AYDEE Stop: 11/14/18 08:59 Last Admin: 09/26/18 08:24 Dose: Not Given Dextrose (D50w) 50 ml IVP PRN PRN PRN Reason: Blood Glucose less than 70 Stop: 11/14/18 07:38 Dextrose (Glutose 40%) 18.75 gm PO PRN PRN PRN Reason: Blood Glucose less than 70 Stop: 11/14/18 07:38 Donepezil HCl (Aricept) 5 mg PO HS [facility] Stop: 11/21/18 20:59 Last Admin: 09/25/18 20:58 Dose: 5 mg Furosemide (Lasix) 20 mg PO DAILY AYDEE Stop: 11/14/18 08:59 Last Admin: 09/26/18 08:24 Dose: Not Given Glucagon (Glucagen) 1 mg IM PRN PRN PRN Reason: Blood Glucose less than 70 Stop: 11/14/18 07:38 Hydrochlorothiazide (Hctz) 50 mg PO BID [facility] Stop: 11/14/18 08:59 Last Admin: 09/26/18 08:24 Dose: Not Given Hydroxyzine HCl (Atarax) 25 mg PO BID [facility]; Protocol Stop: 11/14/18 08:59 Last Admin: 09/26/18 08:33 Dose: 25 mg Insulin Human Lispro (Humalog Insulin Sliding Scale) 0 units SUBQ ACHS [facility]; Protocol Stop: 11/14/18 11:29 Last Admin: 09/26/18 06:42 Dose: Not Given Lactobacillus Rhamnosus (Culturelle 15b) 1 each PO DAILY [facility] Stop: 11/14/18 08:59 Last Admin: 09/26/18 08:33 Dose: 1 each Lorazepam (Ativan) 0.5 mg PO Q4HR PRN; Protocol PRN Reason: Anxiety Stop: 10/15/18 03:47 Last Admin: 09/22/18 20:14 Dose: 0.5 mg Magnesium Hydroxide (Milk Of Magnesia) 30 ml PO TID PRN PRN Reason: Constipation Stop: 11/24/18 15:08 Last Admin: 09/25/18 15:37 Dose: 30 ml Memantine (Namenda) 5 mg PO DAILY [facility] Stop: 11/24/18 08:59 Last Admin: 09/26/18 08:33 Dose: 5 mg Pantoprazole Sodium (Protonix) 40 mg PO DAILY [facility] Stop: 11/14/18 08:59 Last Admin: 09/26/18 08:33 Dose: 40 mg Paroxetine HCl (Paxil) 20 mg PO DAILY [facility]; Protocol Stop: 11/14/18 08:59 Last Admin: 09/26/18 08:33 Dose: 20 mg Senna (Senna) 8.6 mg PO BID AYDEE Stop: 11/14/18 08:59 Last Admin: 09/26/18 08:33 Dose: 8.6 mg Simvastatin (Zocor) 20 mg PO HS AYDEE; Protocol Stop: 11/14/18 20:59 Last Admin: 09/25/18 20:58 Dose: 20 mg Tramadol HCl (Ultram) 50 mg PO BID PRN PRN Reason: Pain (Moderate) Stop: 11/14/18 03:55 Zolpidem Tartrate (Ambien) 5 mg PO HS PRN PRN Reason: Insomnia Stop: 11/14/18 03:47 Last Admin: 09/25/18 22:49 Dose: 5 mg General: alert, demented, NAD HEENT: NC/AT Neck: Supple, No JVD Lungs: other (no acute respiratory distress.) Cardiovascular: Normal S1, Normal S2 Abdomen: soft, non-tender Extremities: clear Neurological: no change Internal Medicine Assmt/Plan - Assessment Assessment: #Psychosis #Dementia #HTN #OA #Iron deficiency Anemia - Plan Plan: CPM Nutritional Asmnt/Malnutr-PDOC - Dietary Evaluation Malnutrition Findings (Please click <Entered> for more info): Nutritional Asmnt/Malnutrition Start: 09/17/18 11: 12 Text: Status: Complete Freq: Protocol: Document 09/17/18 11:12 MIKE (Rec: 09/17/18 11:29 MIKE CULVER- FNS1) Nutritional Asmnt/Malnutrition Patient General Information Nutritional Screening High Risk Consult Diagnosis Psychosis NOS Pertinent Medical Hx/Surgical Hx HTN, Congestive heart failure, diabetes, osteoarthritis, hyperlipidemia Subjective Information Patient was admitted from SNF. Consult recieved for "food texture". Patient was given KCL 40 meq, but K was not rechecked. In bed at time of visit. Current Diet Order/ Nutrition Support 60 gm CCHO, 2gm Sodium, no concentrated sweets, chopped Patient / S.O Not Indicated Pertinent Medications D50W, lasix, glucagon, humalog , culturelle, protonix, senna Pertinent Labs (09/15) Na 134, K 2.9, TAG 281, glucose ranging 99-172 Nutritional Hx/Data Height 5 ft Height (Calculated Centimeters) 152.4 Current Weight (lbs) 150 lb Weight (Calculated Kilograms) 68.0 Weight (Calculated Grams) 87465.9 [place] Body Weight 100 % [place] Body Weight 150 Body Mass Index (BMI) 29.2 Recent Weight Change No Weight Status Overweight GI Symptoms GI Symptoms None Last BM none noted since admission Difficult in: None Food Allergies No Cultural/Ethnic/Gnosticism Belief none noted Usual diet at home unknown Skin Integrity/Comment: Vlad 20, 2+ pitting edema Current %PO Fair (50-74%) Estimated Nutritional Goals BEE in Kcals: Using Current wt Calories/Kcals/Kg 68.1kg CBW Kcals Calculated ~3185-2132 kcal/day (22-25 kcal/kg) Protein: Using Current wt Protein g/k.8-1 gm/kg Protein Calculated ~55-65 gm/day Fluid: ml ~7389-0712 ml/day (1 ml/kcal) Nutritional Problem 1. Problem Problem Altered nutrition related lab values related to Etiology electrolyte imbalance aeb Signs/Symptoms: Na 134, K 2.9 Intervention/Recommendation Comments 1. Continue 60 gm CCHO, 2gm Sodium, Chopped diet as tolerated by patient. 2. Consider rechecking K and Na level. If remains hyponatremic, consider fluid restriction. Expected Outcomes/Goals Expected Outcomes/Goals PO intake to meet >75% of nutritional needs, weight stability or trend toward ideal body weight, skin intact , nutrition related labs to approach WNL. F/U MR 09/20-09/22
--- NOTE | 2018-09-26 13:26 | Progress Notes ---
DATE: 09/26/2018 SUBJECTIVE: The patient seems to be somewhat calmer, still confused, disoriented, not really quite sure where she came from, not really quite sure where she is going. We are trying to help the patient with placement, not really able to participate in discussions about placement, and is just asking to leave, but really does not have anywhere to go. The patient apparently is coming from [facility], seems to be approaching her baseline. Fair sleep, fair appetite. The patient is not a very good historian. The patient is still talking about her mom being next to her, paranoid, making some odd comments. ASSESSMENT: The patient remains confused, disoriented, seems to have some sequelae of dementia. We will continue to monitor. The patient noting she is generally calmer, more cooperative. JOB# [id number]
[2018-09-27] MEDS: INSULIN LISPRO SLIDING SCALE 100 UNITS/ML UNIT SUBQ SCH ×4 (07:30→21:03)
[2018-09-27] MEDS: Lactobacillus Rhamnosus GG 15 Billion CFU CAP.SPRINK PO SCH (08:58)
[2018-09-27] MEDS: Pantoprazole 40 mg EC Tab PO SCH (08:58)
--- NOTE | 2018-09-27 18:17 | Internal Medicine Prog Note ---
Internal Medicine Subjective - Subjective Service Date: 09/27/18 Patient is:: awake, non-interactive, agitated Patient Complaints of:: other (Patient is easily Agitated.) Per staff patient has:: no adverse event, no episodes of fall Internal Medicine Objective - Results Result Diagrams: 09/15/18 01:45 09/21/18 10:00 Recent Labs: Laboratory Last Values WBC 12.1 Th/cmm (4.8-10.8) H 09/15/18 01:45 RBC 5.80 Mil/cmm (3.80-5.20) H 09/15/18 01:45 Hgb 15.6 gm/dL (12-16) 09/15/18 01:45 Hct 47.7 % (41.0-60) 09/15/18 01:45 MCV 82.2 fl (81-100) 09/15/18 01:45 MCH 26.9 pg (27.0-31.0) L 09/15/18 01:45 MCHC Differential 32.7 pg (28.0-36.0) 09/15/18 01:45 RDW 17.2 % (11.5-20.0) 09/15/18 01:45 Plt Count 274 Th/cmm (150-400) 09/15/18 01:45 MPV 9.3 fl 09/15/18 01:45 Neutrophils % 70.8 % (40.0-80.0) 09/15/18 01:45 Lymphocytes % 22.1 % (20.0-50.0) 09/15/18 01:45 Monocytes % 6.2 % (2.0-10.0) 09/15/18 01:45 Eosinophils % 0.9 % (0.0-5.0) 09/15/18 01:45 Basophils % 0.0 % (0.0-2.0) 09/15/18 01:45 Sodium 134 mEq/L (136-145) L 09/21/18 10:00 Potassium 3.5 mEq/L (3.5-5.1) 09/21/18 10:00 Chloride 89 mEq/L (98-107) L 09/21/18 10:00 Carbon Dioxide 37.4 mEq/L (21.0-31.0) H 09/21/18 10:00 Anion Gap 11.1 (7.0-16.0) 09/21/18 10:00 BUN 39 mg/dL (7-25) H 09/21/18 10:00 Creatinine 1.0 mg/dL (0.6-1.2) 09/21/18 10:00 Est GFR ( Amer) > 60.0 ml/min (>90) 09/21/18 10:00 Est GFR (Non-Af Amer) 59.1 ml/min 09/21/18 10:00 BUN/Creatinine Ratio 39.0 09/21/18 10:00 Glucose 130 mg/dL (70-105) H 09/21/18 10:00 POC Glucose 169 MG/DL (70 - 105) H 09/27/18 16:47 Calcium 9.9 mg/dL (8.6-10.3) 09/21/18 10:00 Triglycerides 281 mg/dL (<150) H 09/15/18 00:00 Cholesterol 160 mg/dL (<200) 09/15/18 00:00 LDL Cholesterol Direct 84 mg/dL (75-193) 09/15/18 00:00 HDL Cholesterol 36 mg/dL (23-92) 09/15/18 00:00 - Physical Exam Vitals and I&O: Vital Signs Temp 96.7 F 09/27/18 13:59 Pulse 83 09/27/18 13:59 Resp 20 09/27/18 13:59 BP 106/48 09/27/18 17:14 Pulse Ox 97 09/27/18 13:59 Intake & Output 09/26/18 09/27/18 09/27/18 18:59 06:59 18:59 Intake Total 0495 216 1418 Balance 6481 297 6329 Intake: Oral 5334 840 4717 Other: # Voids 4 3 4 # Bowel Movements 0 1 Active Medications: Current Medications Acetaminophen (Tylenol) 650 mg PO Q4HR PRN PRN Reason: Pain or Fever >101 Stop: 11/14/18 03:55 Last Admin: 09/27/18 14:15 Dose: 650 mg Amlodipine Besylate (Norvasc) 5 mg PO DAILY [facility] Stop: 11/14/18 08:59 Last Admin: 09/27/18 08:57 Dose: 5 mg Dextrose (D50w) 50 ml IVP PRN PRN PRN Reason: Blood Glucose less than 70 Stop: 11/14/18 07:38 Dextrose (Glutose 40%) 18.75 gm PO PRN PRN PRN Reason: Blood Glucose less than 70 Stop: 11/14/18 07:38 Donepezil HCl (Aricept) 5 mg PO HS [facility] Stop: 11/21/18 20:59 Last Admin: 09/26/18 20:47 Dose: 5 mg Furosemide (Lasix) 20 mg PO DAILY [facility] Stop: 11/14/18 08:59 Last Admin: 09/27/18 08:57 Dose: 20 mg Glucagon (Glucagen) 1 mg IM PRN PRN PRN Reason: Blood Glucose less than 70 Stop: 11/14/18 07:38 Hydrochlorothiazide (Hctz) 50 mg PO BID [facility] Stop: 11/14/18 08:59 Last Admin: 09/27/18 17:14 Dose: Not Given Hydroxyzine HCl (Atarax) 25 mg PO BID [facility]; Protocol Stop: 11/14/18 08:59 Last Admin: 09/27/18 17:13 Dose: 25 mg Insulin Human Lispro (Humalog Insulin Sliding Scale) 0 units SUBQ ACHS [facility]; Protocol Stop: 11/14/18 11:29 Last Admin: 09/27/18 16:35 Dose: 2 units Lactobacillus Rhamnosus (Culturelle 15b) 1 each PO DAILY [facility] Stop: 11/14/18 08:59 Last Admin: 09/27/18 08:58 Dose: 1 each Lorazepam (Ativan) 0.5 mg PO Q4HR PRN; Protocol PRN Reason: Anxiety Stop: 10/15/18 03:47 Last Admin: 09/22/18 20:14 Dose: 0.5 mg Magnesium Hydroxide (Milk Of Magnesia) 30 ml PO TID PRN PRN Reason: Constipation Stop: 11/24/18 15:08 Last Admin: 09/25/18 15:37 Dose: 30 ml Memantine (Namenda) 5 mg PO DAILY [facility] Stop: 11/24/18 08:59 Last Admin: 09/27/18 08:58 Dose: 5 mg Pantoprazole Sodium (Protonix) 40 mg PO DAILY [facility] Stop: 11/14/18 08:59 Last Admin: 09/27/18 08:58 Dose: 40 mg Paroxetine HCl (Paxil) 20 mg PO DAILY [facility]; Protocol Stop: 11/14/18 08:59 Last Admin: 09/27/18 08:59 Dose: 20 mg Senna (Senna) 8.6 mg PO BID [facility] Stop: 11/14/18 08:59 Last Admin: 09/27/18 17:13 Dose: 8.6 mg Simvastatin (Zocor) 20 mg PO HS [facility]; Protocol Stop: 11/14/18 20:59 Last Admin: 09/26/18 20:47 Dose: 20 mg Tramadol HCl (Ultram) 50 mg PO BID PRN PRN Reason: Pain (Moderate) Stop: 11/14/18 03:55 Zolpidem Tartrate (Ambien) 5 mg PO HS PRN PRN Reason: Insomnia Stop: 11/14/18 03:47 Last Admin: 09/26/18 20:47 Dose: 5 mg General: alert, demented, NAD HEENT: NC/AT Neck: Supple, No JVD Lungs: other (no acute respiratory distress.) Cardiovascular: Normal S1, Normal S2 Abdomen: soft, non-tender Extremities: clear Neurological: no change Internal Medicine Assmt/Plan - Assessment Assessment: #Psychosis #Dementia #HTN #OA #Iron deficiency Anemia - Plan Plan: CPM Nutritional Asmnt/Malnutr-PDOC - Dietary Evaluation Malnutrition Findings (Please click <Entered> for more info): Nutritional Asmnt/Malnutrition Start: 09/17/18 11: 12 Text: Status: Complete Freq: Protocol: Document 09/17/18 11:12 MMCECILE (Rec: 09/17/18 11:29 MMCECILE CULVER- FNS1) Nutritional Asmnt/Malnutrition Patient General Information Nutritional Screening High Risk Consult Diagnosis Psychosis NOS Pertinent Medical Hx/Surgical Hx HTN, Congestive heart failure, diabetes, osteoarthritis, hyperlipidemia Subjective Information Patient was admitted from SNF. Consult recieved for "food texture". Patient was given KCL 40 meq, but K was not rechecked. In bed at time of visit. Current Diet Order/ Nutrition Support 60 gm CCHO, 2gm Sodium, no concentrated sweets, chopped Patient / S.O Not Indicated Pertinent Medications D50W, lasix, glucagon, humalog , culturelle, protonix, senna Pertinent Labs (09/15) Na 134, K 2.9, TAG 281, glucose ranging 99-172 Nutritional Hx/Data Height 5 ft Height (Calculated Centimeters) 152.4 Current Weight (lbs) 150 lb Weight (Calculated Kilograms) 68.0 Weight (Calculated Grams) 93513.9 [place] Body Weight 100 % [place] Body Weight 150 Body Mass Index (BMI) 29.2 Recent Weight Change No Weight Status Overweight GI Symptoms GI Symptoms None Last BM none noted since admission Difficult in: None Food Allergies No Cultural/Ethnic/Church Belief none noted Usual diet at home unknown Skin Integrity/Comment: Vlad 20, 2+ pitting edema Current %PO Fair (50-74%) Estimated Nutritional Goals BEE in Kcals: Using Current wt Calories/Kcals/Kg 68.1kg CBW Kcals Calculated ~1405-8059 kcal/day (22-25 kcal/kg) Protein: Using Current wt Protein g/k.8-1 gm/kg Protein Calculated ~55-65 gm/day Fluid: ml ~1243-5000 ml/day (1 ml/kcal) Nutritional Problem 1. Problem Problem Altered nutrition related lab values related to Etiology electrolyte imbalance aeb Signs/Symptoms: Na 134, K 2.9 Intervention/Recommendation Comments 1. Continue 60 gm CCHO, 2gm Sodium, Chopped diet as tolerated by patient. 2. Consider rechecking K and Na level. If remains hyponatremic, consider fluid restriction. Expected Outcomes/Goals Expected Outcomes/Goals PO intake to meet >75% of nutritional needs, weight stability or trend toward ideal body weight, skin intact , nutrition related labs to approach WNL. F/U MR 09/20-09/22
[2018-09-28] MEDS: INSULIN LISPRO SLIDING SCALE 100 UNITS/ML UNIT SUBQ SCH ×4 (06:50→21:18)
[2018-09-28] MEDS: Lactobacillus Rhamnosus GG 15 Billion CFU CAP.SPRINK PO SCH (08:39)
[2018-09-28] MEDS: Pantoprazole 40 mg EC Tab PO SCH (08:39)
--- NOTE | 2018-09-28 09:47 | Internal Medicine Prog Note ---
Internal Medicine Subjective - Subjective Service Date: 09/28/18 Patient seen and examined:: with staff Patient is:: awake, non-interactive, confused Patient Complaints of:: other (Patient is easily Agitated.) Per staff patient has:: no adverse event, no episodes of fall, confused Internal Medicine Objective - Results Result Diagrams: 09/15/18 01:45 09/21/18 10:00 Recent Labs: Laboratory Last Values WBC 12.1 Th/cmm (4.8-10.8) H 09/15/18 01:45 RBC 5.80 Mil/cmm (3.80-5.20) H 09/15/18 01:45 Hgb 15.6 gm/dL (12-16) 09/15/18 01:45 Hct 47.7 % (41.0-60) 09/15/18 01:45 MCV 82.2 fl (81-100) 09/15/18 01:45 MCH 26.9 pg (27.0-31.0) L 09/15/18 01:45 MCHC Differential 32.7 pg (28.0-36.0) 09/15/18 01:45 RDW 17.2 % (11.5-20.0) 09/15/18 01:45 Plt Count 274 Th/cmm (150-400) 09/15/18 01:45 MPV 9.3 fl 09/15/18 01:45 Neutrophils % 70.8 % (40.0-80.0) 09/15/18 01:45 Lymphocytes % 22.1 % (20.0-50.0) 09/15/18 01:45 Monocytes % 6.2 % (2.0-10.0) 09/15/18 01:45 Eosinophils % 0.9 % (0.0-5.0) 09/15/18 01:45 Basophils % 0.0 % (0.0-2.0) 09/15/18 01:45 Sodium 134 mEq/L (136-145) L 09/21/18 10:00 Potassium 3.5 mEq/L (3.5-5.1) 09/21/18 10:00 Chloride 89 mEq/L (98-107) L 09/21/18 10:00 Carbon Dioxide 37.4 mEq/L (21.0-31.0) H 09/21/18 10:00 Anion Gap 11.1 (7.0-16.0) 09/21/18 10:00 BUN 39 mg/dL (7-25) H 09/21/18 10:00 Creatinine 1.0 mg/dL (0.6-1.2) 09/21/18 10:00 Est GFR ( Amer) > 60.0 ml/min (>90) 09/21/18 10:00 Est GFR (Non-Af Amer) 59.1 ml/min 09/21/18 10:00 BUN/Creatinine Ratio 39.0 09/21/18 10:00 Glucose 130 mg/dL (70-105) H 09/21/18 10:00 POC Glucose 99 MG/DL (70 - 105) 09/28/18 05:20 Calcium 9.9 mg/dL (8.6-10.3) 09/21/18 10:00 Triglycerides 281 mg/dL (<150) H 09/15/18 00:00 Cholesterol 160 mg/dL (<200) 09/15/18 00:00 LDL Cholesterol Direct 84 mg/dL (75-193) 09/15/18 00:00 HDL Cholesterol 36 mg/dL (23-92) 09/15/18 00:00 - Physical Exam Vitals and I&O: Vital Signs Temp 97.8 F 09/28/18 06:28 Pulse 97 09/28/18 08:39 Resp 18 09/28/18 07:46 BP 101/59 09/28/18 08:39 Pulse Ox 88 09/28/18 07:46 Intake & Output 09/27/18 09/28/18 09/28/18 18:59 06:59 18:59 Intake Total 1400 180 Balance 1400 180 Intake: Oral 1400 180 Other: # Voids 4 2 # Bowel Movements 1 0 Active Medications: Current Medications Acetaminophen (Tylenol) 650 mg PO Q4HR PRN PRN Reason: Pain or Fever >101 Stop: 11/14/18 03:55 Last Admin: 09/27/18 14:15 Dose: 650 mg Amlodipine Besylate (Norvasc) 5 mg PO DAILY [facility] Stop: 11/14/18 08:59 Last Admin: 09/28/18 08:39 Dose: Not Given Dextrose (D50w) 50 ml IVP PRN PRN PRN Reason: Blood Glucose less than 70 Stop: 11/14/18 07:38 Dextrose (Glutose 40%) 18.75 gm PO PRN PRN PRN Reason: Blood Glucose less than 70 Stop: 11/14/18 07:38 Donepezil HCl (Aricept) 5 mg PO HS [facility] Stop: 11/21/18 20:59 Last Admin: 09/27/18 20:43 Dose: 5 mg Furosemide (Lasix) 20 mg PO DAILY [facility] Stop: 11/14/18 08:59 Last Admin: 09/28/18 08:39 Dose: 20 mg Glucagon (Glucagen) 1 mg IM PRN PRN PRN Reason: Blood Glucose less than 70 Stop: 11/14/18 07:38 Hydrochlorothiazide (Hctz) 50 mg PO BID [facility] Stop: 11/14/18 08:59 Last Admin: 09/28/18 08:38 Dose: 50 mg Hydroxyzine HCl (Atarax) 25 mg PO BID [facility]; Protocol Stop: 11/14/18 08:59 Last Admin: 09/28/18 08:39 Dose: 25 mg Insulin Human Lispro (Humalog Insulin Sliding Scale) 0 units SUBQ ACHS [facility]; Protocol Stop: 11/14/18 11:29 Last Admin: 09/28/18 06:50 Dose: Not Given Lactobacillus Rhamnosus (Culturelle 15b) 1 each PO DAILY [facility] Stop: 11/14/18 08:59 Last Admin: 09/28/18 08:39 Dose: 1 each Lorazepam (Ativan) 0.5 mg PO Q4HR PRN; Protocol PRN Reason: Anxiety Stop: 10/15/18 03:47 Last Admin: 09/22/18 20:14 Dose: 0.5 mg Magnesium Hydroxide (Milk Of Magnesia) 30 ml PO TID PRN PRN Reason: Constipation Stop: 11/24/18 15:08 Last Admin: 09/25/18 15:37 Dose: 30 ml Memantine (Namenda) 5 mg PO DAILY [facility] Stop: 11/24/18 08:59 Last Admin: 09/28/18 08:39 Dose: 5 mg Pantoprazole Sodium (Protonix) 40 mg PO DAILY [facility] Stop: 11/14/18 08:59 Last Admin: 09/28/18 08:39 Dose: 40 mg Paroxetine HCl (Paxil) 20 mg PO DAILY [facility]; Protocol Stop: 11/14/18 08:59 Last Admin: 09/28/18 08:39 Dose: 20 mg Senna (Senna) 8.6 mg PO BID [facility] Stop: 11/14/18 08:59 Last Admin: 09/28/18 08:39 Dose: 8.6 mg Simvastatin (Zocor) 20 mg PO HS [facility]; Protocol Stop: 11/14/18 20:59 Last Admin: 09/27/18 20:43 Dose: 20 mg Tramadol HCl (Ultram) 50 mg PO BID PRN PRN Reason: Pain (Moderate) Stop: 11/14/18 03:55 Zolpidem Tartrate (Ambien) 5 mg PO HS PRN PRN Reason: Insomnia Stop: 11/14/18 03:47 Last Admin: 09/27/18 20:44 Dose: 5 mg Physical Exam: 63 y/o female patient was admitted due to Agitation, Suicidal ideation and R/o Bipolar disorder. Patient continues to be very dis-oriented and paranoid. We will continue to monitor and treat patient accordingly. General: alert, demented, NAD HEENT: NC/AT Neck: Supple, No JVD Lungs: other (no acute respiratory distress.) Cardiovascular: Normal S1, Normal S2 Abdomen: soft, non-tender Extremities: clear Neurological: no change Internal Medicine Assmt/Plan - Assessment Assessment: Agitation. Suicidal ideation. R/o Bipolar Disorder. Depression. HTN. CHF. Diabetes. OA. Hyperlipidemia. GERD. - Plan Plan: Continuation of care. Monitor Vitals and Labs. Continue present meds as directed. Pain management. Fall precaution. Psych management per Psych. Continue present care management. Nutritional Asmnt/Malnutr-PDOC - Dietary Evaluation Malnutrition Findings (Please click <Entered> for more info): Nutritional Asmnt/Malnutrition Start: 09/17/18 11: 12 Text: Status: Complete Freq: Protocol: Document 09/17/18 11:12 MIKE (Rec: 09/17/18 11:29 MIKE CULVER- FNS1) Nutritional Asmnt/Malnutrition Patient General Information Nutritional Screening High Risk Consult Diagnosis Psychosis NOS Pertinent Medical Hx/Surgical Hx HTN, Congestive heart failure, diabetes, osteoarthritis, hyperlipidemia Subjective Information Patient was admitted from SNF. Consult recieved for "food texture". Patient was given KCL 40 meq, but K was not rechecked. In bed at time of visit. Current Diet Order/ Nutrition Support 60 gm CCHO, 2gm Sodium, no concentrated sweets, chopped Patient / S.O Not Indicated Pertinent Medications D50W, lasix, glucagon, humalog , culturelle, protonix, senna Pertinent Labs (09/15) Na 134, K 2.9, TAG 281, glucose ranging 99-172 Nutritional Hx/Data Height 1.52 m Height (Calculated Centimeters) 152.4 Current Weight (lbs) 68.039 kg Weight (Calculated Kilograms) 68.0 Weight (Calculated Grams) 00697.9 [place] Body Weight 100 % [place] Body Weight 150 Body Mass Index (BMI) 29.2 Recent Weight Change No Weight Status Overweight GI Symptoms GI Symptoms None Last BM none noted since admission Difficult in: None Food Allergies No Cultural/Ethnic/Hinduism Belief none noted Usual diet at home unknown Skin Integrity/Comment: Vlad 20, 2+ pitting edema Current %PO Fair (50-74%) Estimated Nutritional Goals BEE in Kcals: Using Current wt Calories/Kcals/Kg 68.1kg CBW Kcals Calculated ~3245-3551 kcal/day (22-25 kcal/kg) Protein: Using Current wt Protein g/k.8-1 gm/kg Protein Calculated ~55-65 gm/day Fluid: ml ~6789-9969 ml/day (1 ml/kcal) Nutritional Problem 1. Problem Problem Altered nutrition related lab values related to Etiology electrolyte imbalance aeb Signs/Symptoms: Na 134, K 2.9 Intervention/Recommendation Comments 1. Continue 60 gm CCHO, 2gm Sodium, Chopped diet as tolerated by patient. 2. Consider rechecking K and Na level. If remains hyponatremic, consider fluid restriction. Expected Outcomes/Goals Expected Outcomes/Goals PO intake to meet >75% of nutritional needs, weight stability or trend toward ideal body weight, skin intact , nutrition related labs to approach WNL. F/U MR 09/20-09/22
[2018-09-29] MEDS: INSULIN LISPRO SLIDING SCALE 100 UNITS/ML UNIT SUBQ SCH ×4 (06:35→21:17)
[2018-09-29] MEDS: Pantoprazole 40 mg EC Tab PO SCH (08:19)
[2018-09-29] MEDS: Lactobacillus Rhamnosus GG 15 Billion CFU CAP.SPRINK PO SCH (08:19)
--- NOTE | 2018-09-29 16:43 | Progress Notes ---
DATE: 09/27/2018 The patient seen, chart reviewed, discussed with staff. The patient is calmer, seems to be improving. Currently pending confirmation of placement for his sleep or appetite. The patient denying any overt SI, taking her medications, no side effects. Staff noting improvement, generally cooperative. We will monitor for further 24 hours. Discussed with social work specialist to confirm a safe discharge plan. [facility]# [id number]
--- NOTE | 2018-09-29 16:44 | Progress Notes ---
DATE: SUBJECTIVE: The patient seen, chart reviewed, discussed with staff. The patient is calmer, more cooperative, engaged on exam, still somewhat depressed, withdrawn, melancholic, coming in initially for suicidal ideations. She does seem to be showing some signs of improvement. Fair sleep, fair appetite. We will continue to monitor, titrate medications. Currently, I am attempting to confirm a safe discharge plan. Medications were noted. Discussed with staff. [facility]# [id number]
--- NOTE | 2018-09-29 22:58 | Progress Notes ---
DATE: 09/29/2018 SUBJECTIVE: The patient was seen in the dining area. The patient appears to be guarded, easily gets frustrated. Otherwise, the patient appears to be in no acute distress. OBJECTIVE: VITAL SIGNS: Temperature 97.8, heart rate 65, blood pressure 119/71, respiration 18, 94% on room air. HEENT: Head is atraumatic and normocephalic. Eyes: Bilateral conjunctivae are clear. Bilateral pupils are equally round and reactive. NECK: Supple. No JVD. CARDIOVASCULAR: S1, S2, without murmur. PULMONARY: Clear to auscultation. GASTROINTESTINAL: Soft and nontender without guarding. Positive bowel sounds. MUSCULOSKELETAL: No clubbing. No cyanosis noted. ASSESSMENT: 1. Bipolar disorder. 2. Hypertension. 3. Diabetes. 4. Osteoarthritis. 5. Hyperlipidemia. 6. Gastroesophageal reflux disease. PLAN: We will keep the patient inpatient to Psychiatric Unit. We will follow up with a psychiatrist and monitor the patient's condition, behavior, treatment. Plans were discussed with the patient's nurse. Treatment plans were discussed with Dr. Paul. [facility]# [id number]
--- NOTE | 2018-09-30 01:45 | Progress Notes ---
DATE: 09/29/2018 The patient coming in from [facility], increased confusion, depression, thoughts of suicide, anxiety. On [id number], the patient noted to be generally calm, likely approaching her baseline. She is somewhat irritable, upset, wanting to leave. The patient's confirmation was confirmed back to [facility]. Staff noting that sometimes she is intrusive, isolative, withdrawn. No overt SI. The patient is alluding that her suicidal thoughts are gone, but she is still pretty depressed, angry, fair sleep, fair appetite. Medications were noted. Currently on dosing of Paxil. We will continue to monitor, titrate dosages of medications as tolerated. [facility]# [id number]
[2018-09-30] MEDS: INSULIN LISPRO SLIDING SCALE 100 UNITS/ML UNIT SUBQ SCH ×4 (06:41→20:27)
[2018-09-30] MEDS: Lactobacillus Rhamnosus GG 15 Billion CFU CAP.SPRINK PO SCH (09:12)
[2018-09-30] MEDS: Pantoprazole 40 mg EC Tab PO SCH (09:13)
--- NOTE | 2018-09-30 15:02 | Internal Medicine Prog Note ---
Internal Medicine Subjective - Subjective Service Date: 09/30/18 Patient seen and examined:: chart reviewed Patient is:: awake, verbal, interactive, talking Per staff patient has:: no adverse event, no episodes of fall, confused Internal Medicine Objective - Results Result Diagrams: 09/15/18 01:45 09/21/18 10:00 Recent Labs: Laboratory Last Values WBC 12.1 Th/cmm (4.8-10.8) H 09/15/18 01:45 RBC 5.80 Mil/cmm (3.80-5.20) H 09/15/18 01:45 Hgb 15.6 gm/dL (12-16) 09/15/18 01:45 Hct 47.7 % (41.0-60) 09/15/18 01:45 MCV 82.2 fl (81-100) 09/15/18 01:45 MCH 26.9 pg (27.0-31.0) L 09/15/18 01:45 MCHC Differential 32.7 pg (28.0-36.0) 09/15/18 01:45 RDW 17.2 % (11.5-20.0) 09/15/18 01:45 Plt Count 274 Th/cmm (150-400) 09/15/18 01:45 MPV 9.3 fl 09/15/18 01:45 Neutrophils % 70.8 % (40.0-80.0) 09/15/18 01:45 Lymphocytes % 22.1 % (20.0-50.0) 09/15/18 01:45 Monocytes % 6.2 % (2.0-10.0) 09/15/18 01:45 Eosinophils % 0.9 % (0.0-5.0) 09/15/18 01:45 Basophils % 0.0 % (0.0-2.0) 09/15/18 01:45 Sodium 134 mEq/L (136-145) L 09/21/18 10:00 Potassium 3.5 mEq/L (3.5-5.1) 09/21/18 10:00 Chloride 89 mEq/L (98-107) L 09/21/18 10:00 Carbon Dioxide 37.4 mEq/L (21.0-31.0) H 09/21/18 10:00 Anion Gap 11.1 (7.0-16.0) 09/21/18 10:00 BUN 39 mg/dL (7-25) H 09/21/18 10:00 Creatinine 1.0 mg/dL (0.6-1.2) 09/21/18 10:00 Est GFR ( Amer) > 60.0 ml/min (>90) 09/21/18 10:00 Est GFR (Non-Af Amer) 59.1 ml/min 09/21/18 10:00 BUN/Creatinine Ratio 39.0 09/21/18 10:00 Glucose 130 mg/dL (70-105) H 09/21/18 10:00 POC Glucose 91 MG/DL (70 - 105) 09/30/18 06:02 Calcium 9.9 mg/dL (8.6-10.3) 09/21/18 10:00 Triglycerides 281 mg/dL (<150) H 09/15/18 00:00 Cholesterol 160 mg/dL (<200) 09/15/18 00:00 LDL Cholesterol Direct 84 mg/dL (75-193) 09/15/18 00:00 HDL Cholesterol 36 mg/dL (23-92) 09/15/18 00:00 - Physical Exam Vitals and I&O: Vital Signs Temp 98.6 F 09/30/18 14:00 Pulse 59 09/30/18 14:00 Resp 20 09/30/18 14:00 BP 105/52 09/30/18 14:00 Pulse Ox 92 09/30/18 14:00 Intake & Output 09/29/18 09/30/18 09/30/18 18:59 06:59 18:59 Intake Total 950 480 Balance 950 480 Intake: Oral 950 480 Other: # Voids 4 1 # Bowel Movements 1 Active Medications: Current Medications Acetaminophen (Tylenol) 650 mg PO Q4HR PRN PRN Reason: Pain or Fever >101 Stop: 11/14/18 03:55 Last Admin: 09/27/18 14:15 Dose: 650 mg Amlodipine Besylate (Norvasc) 5 mg PO DAILY AYDEE Stop: 11/14/18 08:59 Last Admin: 09/30/18 09:00 Dose: Not Given Dextrose (D50w) 50 ml IVP PRN PRN PRN Reason: Blood Glucose less than 70 Stop: 11/14/18 07:38 Dextrose (Glutose 40%) 18.75 gm PO PRN PRN PRN Reason: Blood Glucose less than 70 Stop: 11/14/18 07:38 Donepezil HCl (Aricept) 5 mg PO HS [facility] Stop: 11/21/18 20:59 Last Admin: 09/29/18 20:54 Dose: 5 mg Furosemide (Lasix) 20 mg PO DAILY AYDEE Stop: 11/14/18 08:59 Last Admin: 09/30/18 09:00 Dose: Not Given Glucagon (Glucagen) 1 mg IM PRN PRN PRN Reason: Blood Glucose less than 70 Stop: 11/14/18 07:38 Hydrochlorothiazide (Hctz) 50 mg PO BID [facility] Stop: 11/14/18 08:59 Last Admin: 09/30/18 09:00 Dose: Not Given Hydroxyzine HCl (Atarax) 25 mg PO BID [facility]; Protocol Stop: 11/14/18 08:59 Last Admin: 09/30/18 09:12 Dose: 25 mg Insulin Human Lispro (Humalog Insulin Sliding Scale) 0 units SUBQ ACHS AYDEE; Protocol Stop: 11/14/18 11:29 Last Admin: 09/30/18 11:30 Dose: Not Given Lactobacillus Rhamnosus (Culturelle 15b) 1 each PO DAILY [facility] Stop: 11/14/18 08:59 Last Admin: 09/30/18 09:12 Dose: 1 each Lorazepam (Ativan) 0.5 mg PO Q4HR PRN; Protocol PRN Reason: Anxiety Stop: 10/15/18 03:47 Last Admin: 09/29/18 01:11 Dose: 0.5 mg Magnesium Hydroxide (Milk Of Magnesia) 30 ml PO TID PRN PRN Reason: Constipation Stop: 11/24/18 15:08 Last Admin: 09/25/18 15:37 Dose: 30 ml Memantine (Namenda) 5 mg PO DAILY [facility] Stop: 11/24/18 08:59 Last Admin: 09/30/18 09:13 Dose: 5 mg Pantoprazole Sodium (Protonix) 40 mg PO DAILY [facility] Stop: 11/14/18 08:59 Last Admin: 09/30/18 09:13 Dose: 40 mg Paroxetine HCl (Paxil) 30 mg PO DAILY [facility]; Protocol Stop: 11/28/18 16:59 Last Admin: 09/30/18 09:11 Dose: 30 mg Senna (Senna) 8.6 mg PO BID AYDEE Stop: 11/14/18 08:59 Last Admin: 09/30/18 09:13 Dose: 8.6 mg Simvastatin (Zocor) 20 mg PO HS AYDEE; Protocol Stop: 11/14/18 20:59 Last Admin: 09/29/18 20:54 Dose: 20 mg Tramadol HCl (Ultram) 50 mg PO BID PRN PRN Reason: Pain (Moderate) Stop: 11/14/18 03:55 Zolpidem Tartrate (Ambien) 5 mg PO HS PRN PRN Reason: Insomnia Stop: 11/14/18 03:47 Last Admin: 09/29/18 20:54 Dose: 5 mg General: alert, demented, NAD HEENT: NC/AT Neck: Supple, No JVD Lungs: other (no acute respiratory distress.) Cardiovascular: RRR Abdomen: soft, non-tender Neurological: no change Internal Medicine Assmt/Plan - Assessment Assessment: Depression r/o Bipolar disorder OA HTN CHF DM GERD Hyperlipidemia Agitation - Plan Plan: Continue to keep in Inpatient Psychiatric Unit. Continue to f/u with psych recs, pt's condition and behavior. Continue current treatments. Continue collaboration with consulting specialist, nursing team and interdisciplinary team. Nutritional Asmnt/Malnutr-PDOC - Dietary Evaluation Malnutrition Findings (Please click <Entered> for more info): Nutritional Asmnt/Malnutrition Start: 09/17/18 11: 12 Text: Status: Complete Freq: Protocol: Document 09/17/18 11:12 MIKE (Rec: 09/17/18 11:29 [email or web address] CULVER- [email or web address]) Nutritional Asmnt/Malnutrition Patient General Information Nutritional Screening High Risk Consult Diagnosis Psychosis NOS Pertinent Medical Hx/Surgical Hx HTN, Congestive heart failure, diabetes, osteoarthritis, hyperlipidemia Subjective Information Patient was admitted from SNF. Consult recieved for "food texture". Patient was given KCL 40 meq, but K was not rechecked. In bed at time of visit. Current Diet Order/ Nutrition Support 60 gm CCHO, 2gm Sodium, no concentrated sweets, chopped Patient / S.O Not Indicated Pertinent Medications D50W, lasix, glucagon, humalog , culturelle, protonix, senna Pertinent Labs (09/15) Na 134, K 2.9, TAG 281, glucose ranging 99-172 Nutritional Hx/Data Height 5 ft Height (Calculated Centimeters) 152.4 Current Weight (lbs) 150 lb Weight (Calculated Kilograms) 68.0 Weight (Calculated Grams) 88133.9 Shirley Body Weight 100 % Shirley Body Weight 150 Body Mass Index (BMI) 29.2 Recent Weight Change No Weight Status Overweight GI Symptoms GI Symptoms None Last BM none noted since admission Difficult in: None Food Allergies No Cultural/Ethnic/M[employer]on Belief none noted Usual diet at home unknown Skin Integrity/Comment: Vlad 20, 2+ pitting edema Current %PO Fair (50-74%) Estimated Nutritional Goals BEE in Kcals: Using Current wt Calories/Kcals/Kg 68.1kg CBW Kcals Calculated ~7842-9481 kcal/day (22-25 kcal/kg) Protein: Using Current wt Protein g/k.8-1 gm/kg Protein Calculated ~55-65 gm/day Fluid: ml ~6399-4493 ml/day (1 ml/kcal) Nutritional Problem 1. Problem Problem Altered nutrition related lab values related to Etiology electrolyte imbalance aeb Signs/Symptoms: Na 134, K 2.9 Intervention/Recommendation Comments 1. Continue 60 gm CCHO, 2gm Sodium, Chopped diet as tolerated by patient. 2. Consider rechecking K and Na level. If remains hyponatremic, consider fluid restriction. Expected Outcomes/Goals Expected Outcomes/Goals PO intake to meet >75% of nutritional needs, weight stability or trend toward ideal body weight, skin intact , nutrition related labs to approach WNL. F/U MR 09/20-09/22
--- NOTE | 2018-09-30 19:15 | Progress Notes ---
DATE: 09/30/2018 SUBJECTIVE: The patient in the hospital noted to be calm and cooperative, able to verbalize her needs, likely approaching her baseline. No SI. No HI. 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 PLAN: We will monitor for further 24 hours. We will attempt to step the patient down tomorrow to a lower level of care. [facility]# [id number]
[2018-10-01] MEDS: INSULIN LISPRO SLIDING SCALE 100 UNITS/ML UNIT SUBQ SCH ×2 (06:38→12:12)
[2018-10-01] MEDS: Pantoprazole 40 mg EC Tab PO SCH (09:46)
[2018-10-01] MEDS: Lactobacillus Rhamnosus GG 15 Billion CFU CAP.SPRINK PO SCH (09:46)
--- NOTE | 2018-10-01 12:10 | Discharge Summary ---
DATE OF DISCHARGE: 10/01/2018 HISTORY OF PRESENT ILLNESS: A 63-year-old female transferred from a convalescent home, increased confusion, depressed, verbalization of suicide, psychological distress, melancholy, very upset, withdrawn, isolated. PAST PSYCHIATRIC HISTORY: Depression. SOCIAL HISTORY: Noted. MENTAL STATUS EXAMINATION: Please see full psych eval for details. PROVISIONAL DIAGNOSIS: Bipolar, mixed, severe, unspecified. MEDICAL: Please see full H and P. HOSPITAL COURSE: After initial assessment, the patient was started on medications. Medications were adjusted and titrated, started on Paxil, Aricept. Noted history of confusion. As hospitalization course progressed, there did not seem to be any evidence of a bipolar illness, mostly confusion and depression. No overt psychotic symptoms either. The patient was generally calm, denying any history of bipolar, attesting to depression, melancholy. Over the course of the hospitalization, she remained confused but her mood improved, affect improved, sleeping well, eating well, no longer talking about suicide. CONDITION UPON DISCHARGE: Improved, better ADLs. Mood "better." Affect broader. Thought processes were disoriented. No SI, no HI, no psychosis. Better insight and judgment. PROVISIONAL DIAGNOSES: Dementia; also major depression, recurrent, unspecified. MEDICAL: Please see full H and P. PROGNOSIS: The patient follows up with outpatient mental health services and remains compliant with treatment. Prognosis will improve, otherwise guarded. [facility]# [id number]
== END 2018-10-01 13:05 | DRG 885 ==
LOC: ER 00:44 → GERO 03:08
PROVIDERS: ADMIT Psychiatry & Neurology Psychiatry; ATTEND Psychiatry & Neurology Psychiatry
DX: F31.64 Bipolar disorder, current episode mixed, severe, with psychotic features (principal); I11.0 Hypertensive heart disease with heart failure; R45.851 Suicidal ideations; M19.90 Unspecified osteoarthritis, unspecified site; I50.9 Heart failure, unspecified; E11.9 Type 2 diabetes mellitus without complications; K21.9 Gastro-esophageal reflux disease without esophagitis; E78.5 Hyperlipidemia, unspecified; J44.9 Chronic obstructive pulmonary disease, unspecified; D50.9 Iron deficiency anemia, unspecified; F03.90 Unspecified dementia, unspecified severity, without behavioral disturbance, psychotic disturbance, mood disturbance, and anxiety; Z88.0 Allergy status to penicillin
CPT/HCPCS: 36415-UA; 71045-TC; 80048-TC; 80061-TC; 82948-90; 83036-90; 85025-TC; 94760; G0410; J1815; Z7610